=== PATIENT | female | born 1975 | race Hispanic/Latino ===

== ENCOUNTER 2022-01-05 13:51 | Inpatient (IN) | payer MEDICARE ==
--- NOTE | 2022-01-05 14:10 | Event Note ---
Date: 01/05/22 The patient was evaluated in the emergency department for symptoms described in the history of present illness. He/she was evaluated in the context of the global COVID-19 pandemic, which necessitated consideration that the patient might be at risk for infection with the virus that causes COVID-19. Institutional protocols and algorithms that pertain to the evaluation of patients at risk for COVID-19 are in a state of rapid change based on information released by regulatory bodies including the CDC and federal and state organizations. These policies and algorithms were followed during the patient's care in the emergency department. Please note that these policies, procedures and recommendations changed on a rapid basis. EMS documentation not available at time of chart dictation Verbal report received from emergency medical services. Patient is a 46-year-old female who reportedly recently relocated here from [place], who is reportedly blind, with a history of end-stage renal disease on hemodialysis, Saturday, Saturday, Saturday, reportedly last received dialysis on December 25, who presents today with EMS with an EMS articulated complaint of request for hemodialysis. EMS reports unremarkable vital signs in the field. They also report the patient has a vascular access catheter which has subsequently either become dislodged or removed. Patient is blind. She is awake, alert, protecting airway, and in no acute distress. Patient will be placed in room 7. Appropriate laboratory studies and EKG will be obtained. Detailed history and physical to be performed by oncoming provider.
[2022-01-05 14:56] LABS: Hematocrit 31.2 % (30.3-42.9); Hemoglobin 10.1 gm/dl (10.1-14.3); Mean Corpuscular HGB Conc 33 % (30-34); Mean Corpuscular Volume 95 fl (79-97); Platelet Count 237 K/mm3 (140-440); Red Blood Count 3.28 M/mm3 (3.65-5.03); Red Cell Distribution Width 15.7 % (13.2-15.2)
[2022-01-05 15:01] LABS: INR 0.97 (0.87-1.13)
--- NOTE | 2022-01-05 16:25 | Emergency Department Report ---
ED General Adult HPI - General Chief complaint: Recheck/Abnormal Lab/Rx Stated complaint: DIAYLSIS Time Seen by Provider: 01/05/22 15:46 Source: patient, EMS Mode of arrival: Wheelchair Limitations: No Limitations - History of Present Illness Initial comments: 46 yo legally blind F with h/o ESRD currently on dialysis who present today with dislodged dialysis catheter yesterday. Pt reports non functioning fistula on her left arm. Pt says she went to the rest room and dislodged the catheter by accident. No bleeding reported. Pt reports that she has her last dialysis on 12/25/21. No other modifying or associated factors. Severity scale (0 -10): 0 ED Review of Systems ROS: Stated complaint: DIAYLSIS Other details as noted in HPI Comment: All other systems reviewed and negative Musculoskeletal: other (dislodged dialysis catheter on right thigh ) ED Physical Exam - General Limitations: No Limitations General appearance: alert, in no apparent distress - Head Head exam: Present: normal inspection - Eye Eye exam: Present: other (legally blind ) - ENT ENT exam: Present: normal exam, normal orophraynx - Neck Neck exam: Present: normal inspection, full ROM. Absent: tenderness - Respiratory Respiratory exam: Present: normal lung sounds bilaterally, respiratory distress. Absent: accessory muscle use - Cardiovascular Cardiovascular Exam: Present: regular rate, normal rhythm, normal heart sounds - GI/Abdominal GI/Abdominal exam: Present: soft, normal bowel sounds. Absent: distended, tenderness - Extremities Exam Extremities exam: Present: other (scar area on the right anterior thigh ) - Back Exam Back exam: Present: normal inspection. Absent: tenderness - Neurological Exam Neurological exam: Present: alert, oriented X3 - Psychiatric Psychiatric exam: Present: normal affect, normal mood - Skin Skin exam: Present: warm, normal color ED Course Vital Signs 01/05/22 13:55 Temperature 98.2 F Pulse Rate 110 H Respiratory 16 Rate Blood Pressure 110/60 [Left] O2 Sat by Pulse 98 Oximetry - Reevaluation(s) Reevaluation #1: 01/05/22 17:04 here with possible dislodged dialysis catheter -- Was able to find out this patient dialysis balance truer as Dr Hasmukh Burton and her dialysis days - and the last time was 12/25/21-- She goes to [facility] at [address] [place] [address] , [address], [place], [place]-- [phone]. Considering that it has been more than a week since dialysis will go ahead and order labs and consult with hospitalist for possible admission for dialysis. Reevaluation #2: 01/05/22 17:34 lab reviewed and noted with elevated BUn/Cr and K as expected-- at 106/17 and 5.5 mg/dl-- Dr Cisneros the balance truer educational psychology professor suggest admission to the hospitalist and given Kayexalate 60 g PO x 1 for the hyperkalemia-- - Consultations Consultation #1: 01/05/22 17:38 Dr Cisneros Consultation #2: 01/05/22 17:39 Dr Gates who requested that I place admission order ED Medical Decision Making - Lab Data Result diagrams: 01/05/22 14:35 01/05/22 14:35 Critical care attestation.: If time is entered above; I have spent that time in minutes in the direct care of this critically ill patient, excluding procedure time. ED Disposition Clinical Impression: ESRD (end stage renal disease) on dialysis, Dialysis catheter clot or failure, Hyperkalemia Disposition: ADMITTED INPATIENT Is pt being admited?: Yes Does the pt Need Aspirin: No Condition: Serious Referrals: PRIMARY CARE, [Primary Care Provider] - 3-5 Days Time of Disposition: 17:38 (Dr Cisneros consulted)
[2022-01-05] MEDS ORDERED: ACETAMINOPHEN 325 MG TAB PO PRN ×2 (17:39→22:32)
[2022-01-05] MEDS ORDERED: ONDANSETRON 4 MG/2 ML INJ IV PRN ×2 (17:39→22:32)
[2022-01-05] MEDS ORDERED: MORPHINE 2 MG/1 ML INJ IV PRN ×2 (17:39→22:32)
[2022-01-05 18:16] LABS: Albumin 3.7 g/dL (3.9-5); Blood Urea Nitrogen 103 mg/dL (7-17); Hemolysis Index 7
[2022-01-05 18:23] LABS: Alanine Aminotransferase < 5 units/L (7-56); BUN/Creatinine Ratio 7
[2022-01-05 18:27] LABS: Hematocrit 31.6 % (30.3-42.9); Hemoglobin 10.1 gm/dl (10.1-14.3); Mean Corpuscular HGB Conc 32 % (30-34); Mean Corpuscular Volume 96 fl (79-97); Platelet Count 243 K/mm3 (140-440); Red Blood Count 3.29 M/mm3 (3.65-5.03); Red Cell Distribution Width 15.4 % (13.2-15.2)
[2022-01-05 18:37] LABS: INR 0.95 (0.87-1.13)
[2022-01-05 18:38] LABS: Partial Thromboplastin Time 31.2 Sec. (24.2-36.6)
[2022-01-05 19:10] LABS: Total Cells Counted 100
[2022-01-05 19:11] LABS: Ovalocytes Few; Platelet Estimate Consistent w Auto
[2022-01-05 21:27] LABS: Hepatitis B Surface Antigen Non-Reactive (Negative); Hepatitis C Virus Antibody Non-Reactive (NonReactive)
[2022-01-05] MEDS ORDERED: METOCLOPRAMIDE 10 MG/2 ML INJ IV PRN ×2 (22:32→22:41)
[2022-01-05] MEDS ORDERED: HYDROmorphone 0.5 MG/0.5 ML INJ IV PRN (22:32)
[2022-01-05 22:36] LABS: Bilirubin,Urine NEG (Negative); Blood,Urine NEG (Negative); Color,Urine Straw (Yellow); Urobilinogen,Urine < 2.0 mg/dL (<2.0)
[2022-01-06 06:27] LABS: Basophils % (Auto) 0.5 % (0.0-1.8); Eosinophils # (Auto) 0.3 K/mm3 (0.0-0.4); Eosinophils % (Auto) 3.1 % (0.0-4.3); Hematocrit 28.9 % (30.3-42.9); Hemoglobin 9.5 gm/dl (10.1-14.3); Lymphocytes # (Auto) 1.3 K/mm3 (1.2-5.4); Lymphocytes % (Auto) 14.5 % (13.4-35.0); Mean Corpuscular HGB Conc 33 % (30-34); Mean Corpuscular Volume 96 fl (79-97); Monocytes # (Auto) 0.6 K/mm3 (0.0-0.8); Monocytes % (Auto) 6.7 % (0.0-7.3); Platelet Count 208 K/mm3 (140-440); Red Blood Count 3.03 M/mm3 (3.65-5.03); Red Cell Distribution Width 15.4 % (13.2-15.2)
[2022-01-06 06:39] LABS: Albumin 3.2 g/dL (3.9-5); Blood Urea Nitrogen 101 mg/dL (7-17); Hemolysis Index 3
[2022-01-06 06:52] LABS: Alanine Aminotransferase < 5 units/L (7-56); BUN/Creatinine Ratio 7
--- NOTE | 2022-01-06 07:02 | History and Physical Report ---
History of Present Illness Date of examination: 01/05/22 Date of admission: 01/05/22 17:40 Chief complaint: Missed hemodialysis Vascath dislodgment from right groin History of present illness: 46 yo legally blind F with h/o ESRD currently on dialysis who present today with dislodged dialysis catheter yesterday. Pt reports non functioning fistula on her left arm. Pt says she went to the rest room and dislodged the catheter by accident. No bleeding reported. Pt reports that she has her last dialysis on 12/25/21. [facility] [place] [facility] Noncompliant with hemodialysis No dialysis for the last 10 days Shortness of breath and orthopnea present Patient is a very poor historian Past History Past Medical History: ESRD, hypertension Past Surgical History: Other (Vas-Cath and AV fistula) Social history: lives with family, full code Family history: hypertension Medications and Allergies Allergies Allergy/AdvReac Type Severity Reaction Status Date / Time sulfamethoxazole Allergy Hives Verified 01/05/22 19:51 [From Bactrim] trimethoprim [From Bactrim] Allergy Hives Verified 01/05/22 19:51 Active Meds: Active Medications Acetaminophen (Acetaminophen 325 Mg Tab) 650 mg PO Q4H PRN PRN Reason: Pain MILD(1-3)/Fever >100.5/JARAMILLO Famotidine (Famotidine 10 Mg Tab) 10 mg PO BID DONTE Hydromorphone HCl (Hydromorphone 0.5 Mg/0.5 Ml Inj) 0.5 mg IV Q3H PRN PRN Reason: Pain , Severe (7-10) Metoclopramide HCl (Metoclopramide 10 Mg/2 Ml Inj) 2.5 mg IV Q6H PRN PRN Reason: Nausea And Vomiting Morphine Sulfate (Morphine 2 Mg/1 Ml Inj) 2 mg IV Q4H PRN PRN Reason: Pain, Moderate (4-6) Ondansetron HCl (Ondansetron 4 Mg/2 Ml Inj) 4 mg IV Q8H PRN PRN Reason: Nausea And Vomiting Oxycodone/Acetaminophen (Oxycodone /Acetaminophen 5-325mg Tab) 1 tab PO Q6H PRN PRN Reason: Pain, Moderate (4-6) Sodium Chloride (Sodium Chloride 0.9% 10 Ml Flush Syringe) 10 ml IV BID DONTE Sodium Chloride (Sodium Chloride 0.9% 10 Ml Flush Syringe) 10 ml IV PRN PRN PRN Reason: LINE FLUSH Review of Systems All systems: negative Cardiovascular: orthopnea, shortness of breath, dyspnea on exertion Exam - Constitutional Vitals: Temp Pulse Resp BP Pulse Ox 98.2 F 102 H 16 134/67 96 01/06/22 03:47 01/06/22 03:47 01/06/22 03:47 01/06/22 03:47 01/06/22 03:47 General appearance: Present: no acute distress, well-nourished - EENT Eyes: Present: PERRL ENT: hearing intact, clear oral mucosa - Neck Neck: Present: supple, normal ROM - Respiratory Respiratory effort: normal Respiratory: bilateral: CTA - Cardiovascular Heart rate: 78 Rhythm: regular Heart Sounds: Present: S1 & S2. Absent: rub, click - Extremities Extremities: no ischemia, pulses intact, pulses symmetrical, No edema Peripheral Pulses: within normal limits - Abdominal General gastrointestinal: Present: soft, non-tender, non-distended, normal bowel sounds Female genitourinary: Present: normal - Integumentary Integumentary: Present: clear, warm, dry - Musculoskeletal Musculoskeletal: gait normal, strength equal bilaterally - Psychiatric Psychiatric: appropriate mood/affect, intact judgment & insight - Neurologic Neurologic: CNII-XII intact, moves all extremities - Allied Health Allied health notes reviewed: nursing, case management HEART Score - HEART Score History: Moderately suspicious Age: 45-65 Risk factors: 1-2 risk factors Troponin: 1-3x normal limit - Critical Actions Critical Actions: 4-6 pts:12-16.6% risk of adverse cardiac event. Should be admitted Results - Labs CBC & Chem 7: 01/06/22 05:41 01/06/22 05:41 Labs: Laboratory Last Values WBC 8.9 K/mm3 (4.5-11.0) 01/06/22 05:41 RBC 3.03 M/mm3 (3.65-5.03) L 01/06/22 05:41 Hgb 9.5 gm/dl (10.1-14.3) L 01/06/22 05:41 Hct 28.9 % (30.3-42.9) L 01/06/22 05:41 MCV 96 fl (79-97) 01/06/22 05:41 MCH 31 pg (28-32) 01/06/22 05:41 MCHC 33 % (30-34) 01/06/22 05:41 RDW 15.4 % (13.2-15.2) H 01/06/22 05:41 Plt Count 208 K/mm3 (140-440) 01/06/22 05:41 Lymph % (Auto) 14.5 % (13.4-35.0) 01/06/22 05:41 [place] % (Auto) 6.7 % (0.0-7.3) 01/06/22 05:41 Eos % (Auto) 3.1 % (0.0-4.3) 01/06/22 05:41 Baso % (Auto) 0.5 % (0.0-1.8) 01/06/22 05:41 Lymph # (Auto) 1.3 K/mm3 (1.2-5.4) 01/06/22 05:41 [place] # (Auto) 0.6 K/mm3 (0.0-0.8) 01/06/22 05:41 Eos # (Auto) 0.3 K/mm3 (0.0-0.4) 01/06/22 05:41 Baso # (Auto) 0.0 K/mm3 (0.0-0.1) 01/06/22 05:41 Add Manual Diff Complete 01/05/22 17:34 Total Counted 100 01/05/22 17:34 Seg Neutrophils % 75.2 % (40.0-70.0) H 01/06/22 05:41 Seg Neuts % (Manual) 91.0 % (40.0-70.0) H 01/05/22 17:34 Band Neutrophils % 0 % 01/05/22 17:34 Lymphocytes % (Manual) 1.0 % (13.4-35.0) L 01/05/22 17:34 Reactive Lymphs % (Man) 0 % 01/05/22 17:34 Monocytes % (Manual) 6.0 % (0.0-7.3) 01/05/22 17:34 Eosinophils % (Manual) 1.0 % (0.0-4.3) 01/05/22 17:34 Basophils % (Manual) 1.0 % (0.0-1.8) 01/05/22 17:34 Metamyelocytes % 0 % 01/05/22 17:34 Myelocytes % 0 % 01/05/22 17:34 Promyelocytes % 0 % 01/05/22 17:34 Blast Cells % 0 % 01/05/22 17:34 Nucleated RBC % Not Reportable 01/05/22 17:34 Seg Neutrophils # 6.7 K/mm3 (1.8-7.7) 01/06/22 05:41 Seg Neutrophils # Man 10.1 K/mm3 (1.8-7.7) H 01/05/22 17:34 Band Neutrophils # 0.0 K/mm3 01/05/22 17:34 Lymphocytes # (Manual) 0.1 K/mm3 (1.2-5.4) L 01/05/22 17:34 Abs React Lymphs (Man) 0.0 K/mm3 01/05/22 17:34 Monocytes # (Manual) 0.7 K/mm3 (0.0-0.8) 01/05/22 17:34 Eosinophils # (Manual) 0.1 K/mm3 (0.0-0.4) 01/05/22 17:34 Basophils # (Manual) 0.1 K/mm3 (0.0-0.1) 01/05/22 17:34 Metamyelocytes # 0.0 K/mm3 01/05/22 17:34 Myelocytes # 0.0 K/mm3 01/05/22 17:34 Promyelocytes # 0.0 K/mm3 01/05/22 17:34 Blast Cells # 0.0 K/mm3 01/05/22 17:34 WBC Morphology Not Reportable 01/05/22 17:34 Hypersegmented Neuts Not Reportable 01/05/22 17:34 Hyposegmented Neuts Not Reportable 01/05/22 17:34 Hypogranular Neuts Not Reportable 01/05/22 17:34 Smudge Cells Not Reportable 01/05/22 17:34 Toxic Granulation Not Reportable 01/05/22 17:34 Toxic Vacuolation Not Reportable 01/05/22 17:34 Dohle Bodies Not Reportable 01/05/22 17:34 Pelger-Huet Anomaly Not Reportable 01/05/22 17:34 Griselda Rods Not Reportable 01/05/22 17:34 Platelet Estimate Consistent w auto 01/05/22 17:34 Clumped Platelets Not Reportable 01/05/22 17:34 Plt Clumps, EDTA Not Reportable 01/05/22 17:34 Large Platelets Not Reportable 01/05/22 17:34 Giant Platelets Not Reportable 01/05/22 17:34 Platelet Satelliting Not Reportable 01/05/22 17:34 Plt Morphology Comment Not Reportable 01/05/22 17:34 RBC Morphology Not Reportable 01/05/22 17:34 Dimorphic RBCs Not Reportable 01/05/22 17:34 Polychromasia Not Reportable 01/05/22 17:34 Hypochromasia Not Reportable 01/05/22 17:34 Poikilocytosis Not Reportable 01/05/22 17:34 Anisocytosis Not Reportable 01/05/22 17:34 Microcytosis Not Reportable 01/05/22 17:34 Macrocytosis Not Reportable 01/05/22 17:34 Spherocytes Not Reportable 01/05/22 17:34 Pappenheimer Bodies Not Reportable 01/05/22 17:34 Sickle Cells Not Reportable 01/05/22 17:34 Target Cells Not Reportable 01/05/22 17:34 Tear Drop Cells Not Reportable 01/05/22 17:34 Ovalocytes Few 01/05/22 17:34 Helmet Cells Not Reportable 01/05/22 17:34 [place] Bodies Not Reportable 01/05/22 17:34 [place] Rings Not Reportable 01/05/22 17:34 Marleny Cells Not Reportable 01/05/22 17:34 Bite Cells Not Reportable 01/05/22 17:34 Crenated Cell Not Reportable 01/05/22 17:34 Elliptocytes Not Reportable 01/05/22 17:34 Acanthocytes (Spur) Not Reportable 01/05/22 17:34 Rouleaux Not Reportable 01/05/22 17:34 Hemoglobin C Crystals Not Reportable 01/05/22 17:34 Schistocytes Not Reportable 01/05/22 17:34 Malaria parasites Not Reportable 01/05/22 17:34 Niall Bodies Not Reportable 01/05/22 17:34 Hem Pathologist Commnt No 01/05/22 17:34 PT 13.7 Sec. (12.2-14.9) 01/05/22 17:34 INR 0.95 (0.87-1.13) 01/05/22 17:34 APTT 31.2 Sec. (24.2-36.6) 01/05/22 17:34 Sodium 135 mmol/L (137-145) L 01/06/22 05:41 Potassium 5.6 mmol/L (3.6-5.0) H 01/06/22 05:41 Chloride 97.6 mmol/L (98-107) L 01/06/22 05:41 Carbon Dioxide 17 mmol/L (22-30) L 01/06/22 05:41 Anion Gap 26 mmol/L 01/06/22 05:41 BUN 101 mg/dL (7-17) H 01/06/22 05:41 Creatinine 15.5 mg/dL (0.6-1.2) H 01/06/22 05:41 Estimated GFR 3 ml/min 01/06/22 05:41 BUN/Creatinine Ratio 7 % 01/06/22 05:41 Glucose 69 mg/dL (65-100) 01/06/22 05:41 Calcium 8.0 mg/dL (8.4-10.2) L 01/06/22 05:41 Total Bilirubin 0.30 mg/dL (0.1-1.2) 01/06/22 05:41 AST 7 units/L (5-40) 01/06/22 05:41 ALT < 5 units/L (7-56) L 01/06/22 05:41 Alkaline Phosphatase 197 units/L (35-129) H 01/06/22 05:41 Total Protein 6.7 g/dL (6.3-8.2) 01/06/22 05:41 Albumin 3.2 g/dL (3.9-5) L 01/06/22 05:41 Albumin/Globulin Ratio 0.9 % 01/06/22 05:41 HCG, Quant < 2 mIU/mL (0-4) 01/05/22 14:35 Urine Color Straw (Yellow) 01/05/22 21:47 Urine Turbidity Clear (Clear) 01/05/22 21:47 Urine pH 7.0 (5.0-7.0) 01/05/22 21:47 Ur Specific [place] 1.010 (1.003-1.030) 01/05/22 21:47 Urine Protein 100 mg/dl mg/dL (Negative) 01/05/22 21:47 Urine Glucose (UA) 150 mg/dL (Negative) 01/05/22 21:47 Urine Ketones Neg mg/dL (Negative) 01/05/22 21:47 Urine Blood Neg (Negative) 01/05/22 21:47 Urine Nitrite Neg (Negative) 01/05/22 21:47 Urine Bilirubin Neg (Negative) 01/05/22 21:47 Urine Urobilinogen < 2.0 mg/dL (<2.0) 01/05/22 21:47 Ur Leukocyte Esterase Neg (Negative) 01/05/22 21:47 Urine WBC (Auto) 2.0 /HPF (0.0-6.0) 01/05/22 21:47 Urine RBC (Auto) 1.0 /HPF (0.0-6.0) 01/05/22 21:47 U Epithel Cells (Auto) 3.0 /HPF (0-13.0) 01/05/22 21:47 Hepatitis A IgM Ab Non-reactive (NonReactive) 01/05/22 21:00 Hep Bs Antigen Non-reactive (Negative) 01/05/22 21:00 Hep B Core IgM Ab Non-reactive (NonReactive) 01/05/22 21:00 Hepatitis C Antibody Non-reactive (NonReactive) 01/05/22 21:00 - Imaging and Cardiology EKG: report reviewed Chest x-ray: report reviewed [place]/IV: Voiding Method Bedside Commode Assessment and Plan Advance Directives: Yes (Full code) VTE prophylaxis?: Chemical Plan of care discussed with patient/family: Yes - Patient Problems (1) Displacement of vascular dialysis catheter, initial encounter Current Visit: Yes Status: Acute Plan to address problem: Needs placement of a new Vas-Cath (2) ESRD (end stage renal disease) on dialysis Current Visit: Yes Status: Chronic Plan to address problem: Continue hemodialysis as per his regular schedule Nephrology on-call was consulted Dr Jac Cisneros (3) Hyperkalemia Current Visit: Yes Status: Acute Plan to address problem: Treated in the emergency room (4) HTN (hypertension) Current Visit: Yes Status: Chronic Qualifiers: Hypertension type: primary hypertension Qualified Code(s): I10 - Essential (primary) hypertension Plan to address problem: Continue antihypertensives and adjust medications (5) DVT prophylaxis Current Visit: Yes Status: Acute Plan to address problem: Heparin and GI prophylaxis (6) Advance care planning Current Visit: Yes Status: Acute Plan to address problem: Disease education conducted, care plan discussed, diagnosis discussed: Prognosis cussed. Patient is full code. Patient acknowledged understanding and agreement with care plan. +30 minutes.
[2022-01-06] MEDS ORDERED: CALCIUM GLUCONATE 2,000 MG in SODIUM CHLORIDE 0.9% 100 ML IV ONE (07:09)
[2022-01-06] MEDS ORDERED: SODIUM POLYSTYRENE 15 GM/60 ML ORAL LIQD PO ONE ×3 (07:09→21:13)
[2022-01-06] MEDS ORDERED: SODIUM BICARB 8.4% 50 MEQ/50 ML SYRINGE IV ONE (07:10)
[2022-01-06] MEDS ORDERED: SODIUM CHLORIDE 0.9% 100 ML IV PRN (09:51)
--- NOTE | 2022-01-06 09:53 | Consultation ---
History of Present Illness - Reason for Consult Consult date: 01/06/22 end stage renal disease - History of Present Illness RFC: ESRD on HD HPI: 46 yo legally blind F with h/o ESRD currently on dialysis who presents with dislodged dialysis catheter. Pt reports non functioning fistula on her left arm. Pt says she went to the rest room and dislodged the catheter by accident. Pt reports that she has her last dialysis on 12/25/21. Patient recently moved from [place] to [facility] ROS: As in HPI otherwise 12 point review of systems -ve Past History Past Medical History: ESRD, hypertension Past Surgical History: Other (Vas-Cath and AV fistula) Social history: lives with family, full code Family history: hypertension Medications and Allergies Allergies Allergy/AdvReac Type Severity Reaction Status Date / Time sulfamethoxazole Allergy Hives Verified 01/05/22 19:51 [From Bactrim] trimethoprim [From Bactrim] Allergy Hives Verified 01/05/22 19:51 Active Meds: Active Medications Acetaminophen (Acetaminophen 325 Mg Tab) 650 mg PO Q4H PRN PRN Reason: Pain MILD(1-3)/Fever >100.5/JARAMILLO Calcitriol (Calcitriol 0.25 Mcg Cap) 0.25 mcg PO QDAY DONTE Famotidine (Famotidine 10 Mg Tab) 10 mg PO BID DONTE Hydromorphone HCl (Hydromorphone 0.5 Mg/0.5 Ml Inj) 0.5 mg IV Q3H PRN PRN Reason: Pain , Severe (7-10) Sodium Chloride (Nacl 0.9%) 100 mls @ 999 mls/hr IV NJ PRN PRN Reason: Hypotension Metoclopramide HCl (Metoclopramide 10 Mg/2 Ml Inj) 2.5 mg IV Q6H PRN PRN Reason: Nausea And Vomiting Morphine Sulfate (Morphine 2 Mg/1 Ml Inj) 2 mg IV Q4H PRN PRN Reason: Pain, Moderate (4-6) Ondansetron HCl (Ondansetron 4 Mg/2 Ml Inj) 4 mg IV Q8H PRN PRN Reason: Nausea And Vomiting Oxycodone/Acetaminophen (Oxycodone /Acetaminophen 5-325mg Tab) 1 tab PO Q6H PRN PRN Reason: Pain, Moderate (4-6) Sodium Chloride (Sodium Chloride 0.9% 10 Ml Flush Syringe) 10 ml IV BID DONTE Sodium Chloride (Sodium Chloride 0.9% 10 Ml Flush Syringe) 10 ml IV PRN PRN PRN Reason: LINE FLUSH Exam - Vital Signs Vital signs: Vital Signs Temp Pulse Resp BP Pulse Ox 98.2 F 110 H 16 110/60 98 01/05/22 13:55 01/05/22 13:55 01/05/22 13:55 01/05/22 13:55 01/05/22 13:55 - Physical Exam Narrative exam: General appearance: Present: no acute distress, well-nourished - EENT Eyes: Present: PERRL ENT: hearing intact, clear oral mucosa - Neck Neck: Present: supple, normal ROM - Respiratory Respiratory effort: normal Respiratory: bilateral: CTA - Cardiovascular Heart rate: 78 Rhythm: regular Heart Sounds: Present: S1 & S2. Absent: rub, click - Extremities Extremities: no ischemia, pulses intact, pulses symmetrical, No edema Peripheral Pulses: within normal limits - Abdominal General gastrointestinal: Present: soft, non-tender, non-distended, normal bowel sounds Female genitourinary: Present: normal - Integumentary Integumentary: Present: clear, warm, dry - Musculoskeletal Musculoskeletal: gait normal, strength equal bilaterally - Psychiatric Psychiatric: appropriate mood/affect, intact judgment & insight - Neurologic Neurologic: CNII-XII intact, moves all extremities - Allied Health Allied health notes reviewed: nursing, case management Results - Lab Results 01/06/22 05:41 01/06/22 05:41 Most recent lab results Calcium 8.0 mg/dL (8.4-10.2) L 01/06/22 05:41 Assessment and Plan (1) Displacement of vascular dialysis catheter, initial encounter (2) ESRD (end stage renal disease) on dialysis (3) Hyperkalemia (4) HTN (hypertension) -Vascular consulted to fix dialysis access, HD afterwards -Kayxelate ordered for high K, Low K diet -Moved to [place] from [place] recently, consult CM to place at [place] HD unit -Pt consents to and is agreeable to dialysis
[2022-01-06] MEDS: FAMOTIDINE 10 MG TAB PO SCH ×2 (10:58→21:36)
[2022-01-06] MEDS: CALCITRIOL 0.25 MCG CAP PO SCH (10:59)
[2022-01-06] MEDS ORDERED: DEXTROSE 50% IN WATER (25GM) 50 ML SYRINGE IV ONE (11:00)
[2022-01-06] MEDS ORDERED: INSULIN REGULAR, HUMAN 100 UNITS/1 ML IV ONE (11:00)
[2022-01-06] MEDS: DEXTROSE 50% IN WATER (25GM) 50 ML SYRINGE IV ONE ×2 (11:01→11:05)
[2022-01-06] MEDS: INSULIN REGULAR, HUMAN 100 UNITS/1 ML IV ONE ×2 (11:02→11:05)
--- NOTE | 2022-01-06 15:54 | Consultation ---
History of Present Illness - Reason for Consult Consult date: 01/06/22 Permacath Insertion Requesting physician: HELENA BELLAMY - History of Present Illness The patient is a 46-year-old female with history of end-stage renal disease who has had dialysis access in bilateral upper extremities as well as previous permacath in bilateral internal jugular veins. Her most recent dialysis access was a right femoral permacath as she states that only been in for a period of t woo. She states that she was getting up to go to the bathroom and the catheter was inadvertently dislodged from its position. The patient has not undergone dialysis 12/25/2021. She denies any chest pain or shortness of breath. She has no additional complaints at this time. Past History Past Medical History: ESRD, hypertension, other (Blindness) Past Surgical History: Other (Dialysis access in bilateral upper extremities, multiple permacaths) Social history: lives with family, full code Family history: hypertension Medications and Allergies Allergies Allergy/AdvReac Type Severity Reaction Status Date / Time sulfamethoxazole Allergy Hives Verified 01/05/22 19:51 [From Bactrim] trimethoprim [From Bactrim] Allergy Hives Verified 01/05/22 19:51 Active Meds: Active Medications Acetaminophen (Acetaminophen 325 Mg Tab) 650 mg PO Q4H PRN PRN Reason: Pain MILD(1-3)/Fever >100.5/JARAMILLO Calcitriol (Calcitriol 0.25 Mcg Cap) 0.25 mcg PO QDAY [facility] Last Admin: 01/06/22 10:59 Dose: 0.25 mcg Famotidine (Famotidine 10 Mg Tab) 10 mg PO BID [facility] Last Admin: 01/06/22 10:58 Dose: Not Given Hydromorphone HCl (Hydromorphone 0.5 Mg/0.5 Ml Inj) 0.5 mg IV Q3H PRN PRN Reason: Pain , Severe (7-10) Sodium Chloride (Nacl 0.9%) 100 mls @ 999 mls/hr IV [place] PRN PRN Reason: Hypotension Metoclopramide HCl (Metoclopramide 10 Mg/2 Ml Inj) 2.5 mg IV Q6H PRN PRN Reason: Nausea And Vomiting Morphine Sulfate (Morphine 2 Mg/1 Ml Inj) 2 mg IV Q4H PRN PRN Reason: Pain, Moderate (4-6) Ondansetron HCl (Ondansetron 4 Mg/2 Ml Inj) 4 mg IV Q8H PRN PRN Reason: Nausea And Vomiting Oxycodone/Acetaminophen (Oxycodone /Acetaminophen 5-325mg Tab) 1 tab PO Q6H PRN PRN Reason: Pain, Moderate (4-6) Sodium Chloride (Sodium Chloride 0.9% 10 Ml Flush Syringe) 10 ml IV BID DONTE Last Admin: 01/06/22 11:02 Dose: 10 ml Sodium Chloride (Sodium Chloride 0.9% 10 Ml Flush Syringe) 10 ml IV PRN PRN PRN Reason: LINE FLUSH Review of Systems All systems: negative Exam - Constitutional Vitals: Temp Pulse Resp BP Pulse Ox 98.6 F 105 H 20 146/80 97 01/06/22 11:51 01/06/22 11:51 01/06/22 07:58 01/06/22 11:51 01/06/22 11:51 General appearance: Present: no acute distress - Respiratory Respiratory effort: normal - Cardiovascular Rhythm: regular - Extremities Extremities: abnormal (multiple thrombosed AV Access sites) Extremity abnormal: other (permacath exit site right thigh without signs of infection or bleeding) - Abdominal General gastrointestinal: Present: non-tender Female genitourinary: Present: deferred - Rectal Rectal Exam: deferred Results - Labs CBC & Chem 7: 01/06/22 05:41 01/06/22 05:41 Labs: Abnormal lab results 01/05/22 01/05/22 01/06/22 Range/Units 17:34 17:34 05:41 WBC 11.1 H (4.5-11.0) K/mm3 RBC 3.29 L 3.03 L (3.65-5.03) M/mm3 Hgb 9.5 L (10.1-14.3) gm/dl Hct 28.9 L (30.3-42.9) % RDW 15.4 H 15.4 H (13.2-15.2) % Seg Neutrophils % 75.2 H (40.0-70.0) % Seg Neuts % (Manual) 91.0 H (40.0-70.0) % Lymphocytes % (Manual) 1.0 L (13.4-35.0) % Seg Neutrophils # Man 10.1 H (1.8-7.7) K/mm3 Lymphocytes # (Manual) 0.1 L (1.2-5.4) K/mm3 Sodium (137-145) mmol/L Potassium 5.8 H (3.6-5.0) mmol/L Chloride (98-107) mmol/L Carbon Dioxide 15 L (22-30) mmol/L BUN 103 H (7-17) mg/dL Creatinine 15.5 H (0.6-1.2) mg/dL Calcium 8.0 L (8.4-10.2) mg/dL ALT < 5 L (7-56) units/L Alkaline Phosphatase 223 H (35-129) units/L Albumin 3.7 L (3.9-5) g/dL 01/06/22 Range/Units 05:41 WBC (4.5-11.0) K/mm3 RBC (3.65-5.03) M/mm3 Hgb (10.1-14.3) gm/dl Hct (30.3-42.9) % RDW (13.2-15.2) % Seg Neutrophils % (40.0-70.0) % Seg Neuts % (Manual) (40.0-70.0) % Lymphocytes % (Manual) (13.4-35.0) % Seg Neutrophils # Man (1.8-7.7) K/mm3 Lymphocytes # (Manual) (1.2-5.4) K/mm3 Sodium 135 L (137-145) mmol/L Potassium 5.6 H (3.6-5.0) mmol/L Chloride 97.6 L (98-107) mmol/L Carbon Dioxide 17 L (22-30) mmol/L BUN 101 H (7-17) mg/dL Creatinine 15.5 H (0.6-1.2) mg/dL Calcium 8.0 L (8.4-10.2) mg/dL ALT < 5 L (7-56) units/L Alkaline Phosphatase 197 H (35-129) units/L Albumin 3.2 L (3.9-5) g/dL Assessment and Plan The patient is a 46-year-old female with a history of end-stage renal disease who has missed approximately 2 weeks of dialysis secondary to a dislodged permacath. She is not in need of urgent dialysis at this time. Will plan for permacath placement on Saturday. Discussed the plan with the patient who expressed understanding and agrees.
--- NOTE | 2022-01-06 16:17 | Progress Note ---
Assessment and Plan Assessment and plan: #Displacement of vascular dialysis catheter #ESRD on hemodialysis -Access: No longer present; originally in right femoral -Outpatient schedule: N/A -HD center: Unknown -Nephrology consulted; appreciate recs. -Vascular surgery consulted; pending recs -Renally dose medications and avoid nephrotoxic drugs. Renal diet. #Hyperkalemia Potassium 5.6 Ordered calcium gluconate, D50, regular insulin 5 units IV for medical management of hyperkalemia Patient refusing treatment. Continue to monitor with daily BMP. Should improve once patient undergoes hemodialysis. #Hypertension - home medications: Unknown - current medications: Currently holding as the patient is normotensive - SBP goal <160 and DBP goal <90 while inpatient - continue to monitor #Hypocalcemia Calcium 8.0 Starting calcitriol 0.25 mg daily #Mild protein caloric malnutrition Albumin 3.2 Starting dietary supplementation Critical Care Billing: The high probability of a clinically significant, sudden or life threatening deterioration of the [renal] system(s) required my full and direct attention, intervention and personal management. The aggregate critical care time was [60] minutes. This time is in addition to time spent performing reported procedures but includes the following: [x] Data Review and interpretation [x] Patient assessment and monitoring of vital signs [x] Documentation [x] Medication orders and management Disposition Plan: Continue medical management Total Time Spent with Patient (Minutes): 45 min History Interval history: No acute events overnight. Hospitalist Physical - Constitutional Vitals: Temp Pulse Resp BP Pulse Ox 98.6 F 105 H 20 146/80 97 01/06/22 11:51 01/06/22 11:51 01/06/22 07:58 01/06/22 11:51 01/06/22 11:51 General appearance: Present: no acute distress, well-nourished, other (Legally blind) - EENT ENT: hearing intact, clear oral mucosa - Neck Neck: Present: supple, normal ROM - Respiratory Respiratory effort: normal Respiratory: bilateral: CTA - Cardiovascular Rhythm: regular Heart Sounds: Present: S1 & S2 - Extremities Extremities: no ischemia, pulses intact, pulses symmetrical, No edema, normal temperature, normal color Peripheral Pulses: within normal limits - Abdominal General gastrointestinal: soft, non-tender, non-distended, normal bowel sounds - Integumentary Integumentary: Present: clear, warm, dry - Psychiatric Psychiatric: appropriate mood/affect, intact judgment & insight, memory intact, cooperative - Neurologic Neurologic: CNII-XII intact, moves all extremities - Allied Health Allied health notes reviewed: nursing HEART Score - HEART Score Age: 45-65 Risk factors: 1-2 risk factors Troponin: 1-3x normal limit - Critical Actions Critical Actions: 4-6 pts:12-16.6% risk of adverse cardiac event. Should be admitted Results - Labs CBC & Chem 7: 01/06/22 05:41 01/06/22 05:41 Labs: Laboratory Last Values WBC 8.9 K/mm3 (4.5-11.0) 01/06/22 05:41 RBC 3.03 M/mm3 (3.65-5.03) L 01/06/22 05:41 Hgb 9.5 gm/dl (10.1-14.3) L 01/06/22 05:41 Hct 28.9 % (30.3-42.9) L 01/06/22 05:41 MCV 96 fl (79-97) 01/06/22 05:41 MCH 31 pg (28-32) 01/06/22 05:41 MCHC 33 % (30-34) 01/06/22 05:41 RDW 15.4 % (13.2-15.2) H 01/06/22 05:41 Plt Count 208 K/mm3 (140-440) 01/06/22 05:41 Lymph % (Auto) 14.5 % (13.4-35.0) 01/06/22 05:41 [place] % (Auto) 6.7 % (0.0-7.3) 01/06/22 05:41 Eos % (Auto) 3.1 % (0.0-4.3) 01/06/22 05:41 Baso % (Auto) 0.5 % (0.0-1.8) 01/06/22 05:41 Lymph # (Auto) 1.3 K/mm3 (1.2-5.4) 01/06/22 05:41 [place] # (Auto) 0.6 K/mm3 (0.0-0.8) 01/06/22 05:41 Eos # (Auto) 0.3 K/mm3 (0.0-0.4) 01/06/22 05:41 Baso # (Auto) 0.0 K/mm3 (0.0-0.1) 01/06/22 05:41 Add Manual Diff Complete 01/05/22 17:34 Total Counted 100 01/05/22 17:34 Seg Neutrophils % 75.2 % (40.0-70.0) H 01/06/22 05:41 Seg Neuts % (Manual) 91.0 % (40.0-70.0) H 01/05/22 17:34 Band Neutrophils % 0 % 01/05/22 17:34 Lymphocytes % (Manual) 1.0 % (13.4-35.0) L 01/05/22 17:34 Reactive Lymphs % (Man) 0 % 01/05/22 17:34 Monocytes % (Manual) 6.0 % (0.0-7.3) 01/05/22 17:34 Eosinophils % (Manual) 1.0 % (0.0-4.3) 01/05/22 17:34 Basophils % (Manual) 1.0 % (0.0-1.8) 01/05/22 17:34 Metamyelocytes % 0 % 01/05/22 17:34 Myelocytes % 0 % 01/05/22 17:34 Promyelocytes % 0 % 01/05/22 17:34 Blast Cells % 0 % 01/05/22 17:34 Nucleated RBC % Not Reportable 01/05/22 17:34 Seg Neutrophils # 6.7 K/mm3 (1.8-7.7) 01/06/22 05:41 Seg Neutrophils # Man 10.1 K/mm3 (1.8-7.7) H 01/05/22 17:34 Band Neutrophils # 0.0 K/mm3 01/05/22 17:34 Lymphocytes # (Manual) 0.1 K/mm3 (1.2-5.4) L 01/05/22 17:34 Abs React Lymphs (Man) 0.0 K/mm3 01/05/22 17:34 Monocytes # (Manual) 0.7 K/mm3 (0.0-0.8) 01/05/22 17:34 Eosinophils # (Manual) 0.1 K/mm3 (0.0-0.4) 01/05/22 17:34 Basophils # (Manual) 0.1 K/mm3 (0.0-0.1) 01/05/22 17:34 Metamyelocytes # 0.0 K/mm3 01/05/22 17:34 Myelocytes # 0.0 K/mm3 01/05/22 17:34 Promyelocytes # 0.0 K/mm3 01/05/22 17:34 Blast Cells # 0.0 K/mm3 01/05/22 17:34 WBC Morphology Not Reportable 01/05/22 17:34 Hypersegmented Neuts Not Reportable 01/05/22 17:34 Hyposegmented Neuts Not Reportable 01/05/22 17:34 Hypogranular Neuts Not Reportable 01/05/22 17:34 Smudge Cells Not Reportable 01/05/22 17:34 Toxic Granulation Not Reportable 01/05/22 17:34 Toxic Vacuolation Not Reportable 01/05/22 17:34 Dohle Bodies Not Reportable 01/05/22 17:34 Pelger-Huet Anomaly Not Reportable 01/05/22 17:34 Griselda Rods Not Reportable 01/05/22 17:34 Platelet Estimate Consistent w auto 01/05/22 17:34 Clumped Platelets Not Reportable 01/05/22 17:34 Plt Clumps, EDTA Not Reportable 01/05/22 17:34 Large Platelets Not Reportable 01/05/22 17:34 Giant Platelets Not Reportable 01/05/22 17:34 Platelet Satelliting Not Reportable 01/05/22 17:34 Plt Morphology Comment Not Reportable 01/05/22 17:34 RBC Morphology Not Reportable 01/05/22 17:34 Dimorphic RBCs Not Reportable 01/05/22 17:34 Polychromasia Not Reportable 01/05/22 17:34 Hypochromasia Not Reportable 01/05/22 17:34 Poikilocytosis Not Reportable 01/05/22 17:34 Anisocytosis Not Reportable 01/05/22 17:34 Microcytosis Not Reportable 01/05/22 17:34 Macrocytosis Not Reportable 01/05/22 17:34 Spherocytes Not Reportable 01/05/22 17:34 Pappenheimer Bodies Not Reportable 01/05/22 17:34 Sickle Cells Not Reportable 01/05/22 17:34 Target Cells Not Reportable 01/05/22 17:34 Tear Drop Cells Not Reportable 01/05/22 17:34 Ovalocytes Few 01/05/22 17:34 Helmet Cells Not Reportable 01/05/22 17:34 Hawkins-Zuehl Bodies Not Reportable 01/05/22 17:34 Center Rings Not Reportable 01/05/22 17:34 Marleny Cells Not Reportable 01/05/22 17:34 Bite Cells Not Reportable 01/05/22 17:34 Crenated Cell Not Reportable 01/05/22 17:34 Elliptocytes Not Reportable 01/05/22 17:34 Acanthocytes (Spur) Not Reportable 01/05/22 17:34 Rouleaux Not Reportable 01/05/22 17:34 Hemoglobin C Crystals Not Reportable 01/05/22 17:34 Schistocytes Not Reportable 01/05/22 17:34 Malaria parasites Not Reportable 01/05/22 17:34 Niall Bodies Not Reportable 01/05/22 17:34 Hem Pathologist Commnt No 01/05/22 17:34 PT 13.7 Sec. (12.2-14.9) 01/05/22 17:34 INR 0.95 (0.87-1.13) 01/05/22 17:34 APTT 31.2 Sec. (24.2-36.6) 01/05/22 17:34 Sodium 135 mmol/L (137-145) L 01/06/22 05:41 Potassium 5.6 mmol/L (3.6-5.0) H 01/06/22 05:41 Chloride 97.6 mmol/L (98-107) L 01/06/22 05:41 Carbon Dioxide 17 mmol/L (22-30) L 01/06/22 05:41 Anion Gap 26 mmol/L 01/06/22 05:41 BUN 101 mg/dL (7-17) H 01/06/22 05:41 Creatinine 15.5 mg/dL (0.6-1.2) H 01/06/22 05:41 Estimated GFR 3 ml/min 01/06/22 05:41 BUN/Creatinine Ratio 7 % 01/06/22 05:41 Glucose 69 mg/dL (65-100) 01/06/22 05:41 Calcium 8.0 mg/dL (8.4-10.2) L 01/06/22 05:41 Total Bilirubin 0.30 mg/dL (0.1-1.2) 01/06/22 05:41 AST 7 units/L (5-40) 01/06/22 05:41 ALT < 5 units/L (7-56) L 01/06/22 05:41 Alkaline Phosphatase 197 units/L (35-129) H 01/06/22 05:41 Total Protein 6.7 g/dL (6.3-8.2) 01/06/22 05:41 Albumin 3.2 g/dL (3.9-5) L 01/06/22 05:41 Albumin/Globulin Ratio 0.9 % 01/06/22 05:41 HCG, Quant < 2 mIU/mL (0-4) 01/05/22 14:35 Urine Color Straw (Yellow) 01/05/22 21:47 Urine Turbidity Clear (Clear) 01/05/22 21:47 Urine pH 7.0 (5.0-7.0) 01/05/22 21:47 Ur Specific [place] 1.010 (1.003-1.030) 01/05/22 21:47 Urine Protein 100 mg/dl mg/dL (Negative) 01/05/22 21:47 Urine Glucose (UA) 150 mg/dL (Negative) 01/05/22 21:47 Urine Ketones Neg mg/dL (Negative) 01/05/22 21:47 Urine Blood Neg (Negative) 01/05/22 21:47 Urine Nitrite Neg (Negative) 01/05/22 21:47 Urine Bilirubin Neg (Negative) 01/05/22 21:47 Urine Urobilinogen < 2.0 mg/dL (<2.0) 01/05/22 21:47 Ur Leukocyte Esterase Neg (Negative) 01/05/22 21:47 Urine WBC (Auto) 2.0 /HPF (0.0-6.0) 01/05/22 21:47 Urine RBC (Auto) 1.0 /HPF (0.0-6.0) 01/05/22 21:47 U Epithel Cells (Auto) 3.0 /HPF (0-13.0) 01/05/22 21:47 Hepatitis A IgM Ab Non-reactive (NonReactive) 01/05/22 21:00 Hep Bs Antigen Non-reactive (Negative) 01/05/22 21:00 Hep B Core IgM Ab Non-reactive (NonReactive) 01/05/22 21:00 Hepatitis C Antibody Non-reactive (NonReactive) 01/05/22 21:00 [place]/IV: Voiding Method Bedside Commode Active Medications - Current Medications Current Medications: Generic Name Dose Route Start Last Admin Trade Name Freq PRN Reason Stop Dose Admin Acetaminophen 650 mg 01/05/22 22:32 Acetaminophen 325 Mg Tab PO Q4H PRN Pain MILD(1-3)/Fever >100.5/JARAMILLO Calcitriol 0.25 mcg 01/06/22 10:00 01/06/22 10:59 Calcitriol 0.25 Mcg Cap PO 0.25 mcg QDAY DONTE Administration Famotidine 10 mg 01/06/22 10:00 01/06/22 10:58 Famotidine 10 Mg Tab PO Not Given BID DONTE Hydromorphone HCl 0.5 mg 01/05/22 22:32 Hydromorphone 0.5 Mg/0.5 Ml Inj IV Q3H PRN Pain , Severe (7-10) Sodium Chloride 100 mls @ 999 mls/hr 01/06/22 09:51 Nacl 0.9% IV [place] PRN Hypotension Metoclopramide HCl 2.5 mg 01/05/22 22:41 Metoclopramide 10 Mg/2 Ml Inj IV Q6H PRN Nausea And Vomiting Morphine Sulfate 2 mg 01/05/22 22:32 Morphine 2 Mg/1 Ml Inj IV Q4H PRN Pain, Moderate (4-6) Ondansetron HCl 4 mg 01/05/22 22:32 Ondansetron 4 Mg/2 Ml Inj IV Q8H PRN Nausea And Vomiting Oxycodone/Acetaminophen 1 tab 01/05/22 22:32 Oxycodone /Acetaminophen 5-325mg Tab PO Q6H PRN Pain, Moderate (4-6) Sodium Chloride 10 ml 01/06/22 10:00 01/06/22 11:02 Sodium Chloride 0.9% 10 Ml Flush Syringe IV 10 ml BID DONTE Administration Sodium Chloride 10 ml 01/05/22 22:32 Sodium Chloride 0.9% 10 Ml Flush Syringe IV PRN PRN LINE FLUSH
[2022-01-06 20:37] LABS: Calcium 8.2 mg/dL (8.4-10.2)
[2022-01-07 06:35] LABS: Calcium 8.7 mg/dL (8.4-10.2)
--- NOTE | 2022-01-07 09:49 | Progress Note ---
Assessment and Plan - Patient Problems (1) Displacement of vascular dialysis catheter, initial encounter Current Visit: Yes Status: Acute Plan to address problem: Vascular surgery team consulted. Patient pending surgical intervention in a.m. no reported nursing events. Patient resting calmly. (2) ESRD (end stage renal disease) on dialysis Current Visit: Yes Status: Chronic Plan to address problem: Dialysis as per renal team. Patient pending permacath placement in a.m. (3) HTN (hypertension) Current Visit: Yes Status: Chronic Qualifiers: Hypertension type: primary hypertension Qualified Code(s): I10 - Essential (primary) hypertension Plan to address problem: Monitor blood pressure every shift, continue medical management. (4) DVT prophylaxis Current Visit: Yes Status: Acute Plan to address problem: SCD to bilateral lower extremities while in bed (5) Advance care planning Current Visit: Yes Status: Acute Plan to address problem: Disease education conducted, care plan discussed, diagnoses discussed, prognosis discussed, patient is full code. +30 minutes. History Interval history: 46 YO Female HD#2 with end-stage renal disease, hyperkalemia, dislodgment of dialysis catheter. Patient pending permacath placement in a.m. patient request pain medications at time of evaluation. No specific complaints. No reported nursing events. Hospitalist Physical - Constitutional Vitals: Temp Pulse Resp BP Pulse Ox 100.6 F H 133 H 16 147/73 97 01/07/22 07:38 01/07/22 07:38 01/07/22 03:43 01/07/22 07:38 01/07/22 07:38 General appearance: Present: no acute distress, well-nourished, other (Legally blind) - EENT Eyes: Present: PERRL ENT: hearing intact - Neck Neck: Present: supple - Respiratory Respiratory: bilateral: CTA - Cardiovascular Rhythm: regular Heart Sounds: Present: S1 & S2 - Extremities Extremities: no ischemia Peripheral Pulses: within normal limits - Abdominal General gastrointestinal: soft, non-tender, non-distended - Integumentary Integumentary: Present: clear, dry - Psychiatric Psychiatric: cooperative - Neurologic Neurologic: CNII-XII intact HEART Score - HEART Score Age: 45-65 Risk factors: 1-2 risk factors Troponin: 1-3x normal limit - Critical Actions Critical Actions: 4-6 pts:12-16.6% risk of adverse cardiac event. Should be admitted Results - Labs CBC & Chem 7: 01/06/22 05:41 01/07/22 05:57 Labs: Laboratory Last Values WBC 8.9 K/mm3 (4.5-11.0) 01/06/22 05:41 RBC 3.03 M/mm3 (3.65-5.03) L 01/06/22 05:41 Hgb 9.5 gm/dl (10.1-14.3) L 01/06/22 05:41 Hct 28.9 % (30.3-42.9) L 01/06/22 05:41 MCV 96 fl (79-97) 01/06/22 05:41 MCH 31 pg (28-32) 01/06/22 05:41 MCHC 33 % (30-34) 01/06/22 05:41 RDW 15.4 % (13.2-15.2) H 01/06/22 05:41 Plt Count 208 K/mm3 (140-440) 01/06/22 05:41 Lymph % (Auto) 14.5 % (13.4-35.0) 01/06/22 05:41 [place] % (Auto) 6.7 % (0.0-7.3) 01/06/22 05:41 Eos % (Auto) 3.1 % (0.0-4.3) 01/06/22 05:41 Baso % (Auto) 0.5 % (0.0-1.8) 01/06/22 05:41 Lymph # (Auto) 1.3 K/mm3 (1.2-5.4) 01/06/22 05:41 [place] # (Auto) 0.6 K/mm3 (0.0-0.8) 01/06/22 05:41 Eos # (Auto) 0.3 K/mm3 (0.0-0.4) 01/06/22 05:41 Baso # (Auto) 0.0 K/mm3 (0.0-0.1) 01/06/22 05:41 Add Manual Diff Complete 01/05/22 17:34 Total Counted 100 01/05/22 17:34 Seg Neutrophils % 75.2 % (40.0-70.0) H 01/06/22 05:41 Seg Neuts % (Manual) 91.0 % (40.0-70.0) H 01/05/22 17:34 Band Neutrophils % 0 % 01/05/22 17:34 Lymphocytes % (Manual) 1.0 % (13.4-35.0) L 01/05/22 17:34 Reactive Lymphs % (Man) 0 % 01/05/22 17:34 Monocytes % (Manual) 6.0 % (0.0-7.3) 01/05/22 17:34 Eosinophils % (Manual) 1.0 % (0.0-4.3) 01/05/22 17:34 Basophils % (Manual) 1.0 % (0.0-1.8) 01/05/22 17:34 Metamyelocytes % 0 % 01/05/22 17:34 Myelocytes % 0 % 01/05/22 17:34 Promyelocytes % 0 % 01/05/22 17:34 Blast Cells % 0 % 01/05/22 17:34 Nucleated RBC % Not Reportable 01/05/22 17:34 Seg Neutrophils # 6.7 K/mm3 (1.8-7.7) 01/06/22 05:41 Seg Neutrophils # Man 10.1 K/mm3 (1.8-7.7) H 01/05/22 17:34 Band Neutrophils # 0.0 K/mm3 01/05/22 17:34 Lymphocytes # (Manual) 0.1 K/mm3 (1.2-5.4) L 01/05/22 17:34 Abs React Lymphs (Man) 0.0 K/mm3 01/05/22 17:34 Monocytes # (Manual) 0.7 K/mm3 (0.0-0.8) 01/05/22 17:34 Eosinophils # (Manual) 0.1 K/mm3 (0.0-0.4) 01/05/22 17:34 Basophils # (Manual) 0.1 K/mm3 (0.0-0.1) 01/05/22 17:34 Metamyelocytes # 0.0 K/mm3 01/05/22 17:34 Myelocytes # 0.0 K/mm3 01/05/22 17:34 Promyelocytes # 0.0 K/mm3 01/05/22 17:34 Blast Cells # 0.0 K/mm3 01/05/22 17:34 WBC Morphology Not Reportable 01/05/22 17:34 Hypersegmented Neuts Not Reportable 01/05/22 17:34 Hyposegmented Neuts Not Reportable 01/05/22 17:34 Hypogranular Neuts Not Reportable 01/05/22 17:34 Smudge Cells Not Reportable 01/05/22 17:34 Toxic Granulation Not Reportable 01/05/22 17:34 Toxic Vacuolation Not Reportable 01/05/22 17:34 Dohle Bodies Not Reportable 01/05/22 17:34 Pelger-Huet Anomaly Not Reportable 01/05/22 17:34 Griselda Rods Not Reportable 01/05/22 17:34 Platelet Estimate Consistent w auto 01/05/22 17:34 Clumped Platelets Not Reportable 01/05/22 17:34 Plt Clumps, EDTA Not Reportable 01/05/22 17:34 Large Platelets Not Reportable 01/05/22 17:34 Giant Platelets Not Reportable 01/05/22 17:34 Platelet Satelliting Not Reportable 01/05/22 17:34 Plt Morphology Comment Not Reportable 01/05/22 17:34 RBC Morphology Not Reportable 01/05/22 17:34 Dimorphic RBCs Not Reportable 01/05/22 17:34 Polychromasia Not Reportable 01/05/22 17:34 Hypochromasia Not Reportable 01/05/22 17:34 Poikilocytosis Not Reportable 01/05/22 17:34 Anisocytosis Not Reportable 01/05/22 17:34 Microcytosis Not Reportable 01/05/22 17:34 Macrocytosis Not Reportable 01/05/22 17:34 Spherocytes Not Reportable 01/05/22 17:34 Pappenheimer Bodies Not Reportable 01/05/22 17:34 Sickle Cells Not Reportable 01/05/22 17:34 Target Cells Not Reportable 01/05/22 17:34 Tear Drop Cells Not Reportable 01/05/22 17:34 Ovalocytes Few 01/05/22 17:34 Helmet Cells Not Reportable 01/05/22 17:34 [place] Bodies Not Reportable 01/05/22 17:34 [place] Rings Not Reportable 01/05/22 17:34 Marleny Cells Not Reportable 01/05/22 17:34 Bite Cells Not Reportable 01/05/22 17:34 Crenated Cell Not Reportable 01/05/22 17:34 Elliptocytes Not Reportable 01/05/22 17:34 Acanthocytes (Spur) Not Reportable 01/05/22 17:34 Rouleaux Not Reportable 01/05/22 17:34 Hemoglobin C Crystals Not Reportable 01/05/22 17:34 Schistocytes Not Reportable 01/05/22 17:34 Malaria parasites Not Reportable 01/05/22 17:34 Niall Bodies Not Reportable 01/05/22 17:34 Hem Pathologist Commnt No 01/05/22 17:34 PT 13.7 Sec. (12.2-14.9) 01/05/22 17:34 INR 0.95 (0.87-1.13) 01/05/22 17:34 APTT 31.2 Sec. (24.2-36.6) 01/05/22 17:34 Sodium 138 mmol/L (137-145) 01/07/22 05:57 Potassium 3.9 mmol/L (3.6-5.0) D 01/07/22 05:57 Chloride 98.0 mmol/L (98-107) 01/07/22 05:57 Carbon Dioxide 15 mmol/L (22-30) L 01/07/22 05:57 Anion Gap 29 mmol/L 01/07/22 05:57 BUN 98 mg/dL (7-17) H 01/07/22 05:57 Creatinine 15.3 mg/dL (0.6-1.2) H 01/07/22 05:57 Estimated GFR 3 ml/min 01/07/22 05:57 BUN/Creatinine Ratio 6 % 01/07/22 05:57 Glucose 73 mg/dL (65-100) 01/07/22 05:57 Calcium 8.7 mg/dL (8.4-10.2) 01/07/22 05:57 Total Bilirubin 0.30 mg/dL (0.1-1.2) 01/06/22 05:41 AST 7 units/L (5-40) 01/06/22 05:41 ALT < 5 units/L (7-56) L 01/06/22 05:41 Alkaline Phosphatase 197 units/L (35-129) H 01/06/22 05:41 Total Protein 6.7 g/dL (6.3-8.2) 01/06/22 05:41 Albumin 3.2 g/dL (3.9-5) L 01/06/22 05:41 Albumin/Globulin Ratio 0.9 % 01/06/22 05:41 HCG, Quant < 2 mIU/mL (0-4) 01/05/22 14:35 Urine Color Straw (Yellow) 01/05/22 21:47 Urine Turbidity Clear (Clear) 01/05/22 21:47 Urine pH 7.0 (5.0-7.0) 01/05/22 21:47 Ur Specific [place] 1.010 (1.003-1.030) 01/05/22 21:47 Urine Protein 100 mg/dl mg/dL (Negative) 01/05/22 21:47 Urine Glucose (UA) 150 mg/dL (Negative) 01/05/22 21:47 Urine Ketones Neg mg/dL (Negative) 01/05/22 21:47 Urine Blood Neg (Negative) 01/05/22 21:47 Urine Nitrite Neg (Negative) 01/05/22 21:47 Urine Bilirubin Neg (Negative) 01/05/22 21:47 Urine Urobilinogen < 2.0 mg/dL (<2.0) 01/05/22 21:47 Ur Leukocyte Esterase Neg (Negative) 01/05/22 21:47 Urine WBC (Auto) 2.0 /HPF (0.0-6.0) 01/05/22 21:47 Urine RBC (Auto) 1.0 /HPF (0.0-6.0) 01/05/22 21:47 U Epithel Cells (Auto) 3.0 /HPF (0-13.0) 01/05/22 21:47 Hepatitis A IgM Ab Non-reactive (NonReactive) 01/05/22 21:00 Hep Bs Antigen Non-reactive (Negative) 01/05/22 21:00 Hep B Core IgM Ab Non-reactive (NonReactive) 01/05/22 21:00 Hepatitis C Antibody Non-reactive (NonReactive) 01/05/22 21:00 [place]/IV: Voiding Method Bedside Commode Active Medications - Current Medications Current Medications: Generic Name Dose Route Start Last Admin Trade Name Freq PRN Reason Stop Dose Admin Acetaminophen 650 mg 01/05/22 22:32 Acetaminophen 325 Mg Tab PO Q4H PRN Pain MILD(1-3)/Fever >100.5/JARAMILLO Calcitriol 0.25 mcg 01/06/22 10:00 01/06/22 10:59 Calcitriol 0.25 Mcg Cap PO 0.25 mcg QDAY DONTE Administration Famotidine 10 mg 01/06/22 10:00 01/06/22 21:36 Famotidine 10 Mg Tab PO 10 mg BID DONTE Administration Hydromorphone HCl 0.5 mg 01/05/22 22:32 Hydromorphone 0.5 Mg/0.5 Ml Inj IV Q3H PRN Pain , Severe (7-10) Sodium Chloride 100 mls @ 999 mls/hr 01/06/22 09:51 Nacl 0.9% IV NJ PRN Hypotension Metoclopramide HCl 2.5 mg 01/05/22 22:41 Metoclopramide 10 Mg/2 Ml Inj IV Q6H PRN Nausea And Vomiting Morphine Sulfate 2 mg 01/05/22 22:32 Morphine 2 Mg/1 Ml Inj IV Q4H PRN Pain, Moderate (4-6) Ondansetron HCl 4 mg 01/05/22 22:32 Ondansetron 4 Mg/2 Ml Inj IV Q8H PRN Nausea And Vomiting Oxycodone/Acetaminophen 1 tab 01/05/22 22:32 Oxycodone /Acetaminophen 5-325mg Tab PO Q6H PRN Pain, Moderate (4-6) Sodium Chloride 10 ml 01/06/22 10:00 01/06/22 21:36 Sodium Chloride 0.9% 10 Ml Flush Syringe IV Not Given BID DONTE Sodium Chloride 10 ml 01/05/22 22:32 Sodium Chloride 0.9% 10 Ml Flush Syringe IV PRN PRN LINE FLUSH Nutrition/Malnutrition Assess - Dietary Evaluation Nutrition/Malnutrition Findings: Nutrition Notes Start: 01/06/22 16:44 Freq: Status: Active Protocol: Document 01/06/22 16:44 JOSE (Rec: 01/06/22 17:15 JOSE [id number]) Nutrition Notes Need for Assessment generated from: MD Order Initial or Follow up Assessment Current Diagnosis CKD (stage V CKD),Hypertension ,Malnutrition Other Pertinent Diagnosis ESRD+HD, VasCath Displacement, Hyperkalemia. Current Diet Renal Diet + D Suppl (since B 01/06). Labs/Tests 01/06: Na 135, K 5.6, Cl 97.6, CO2 17, BUN 101, Crea 15.5, Ca 8.0. Pertinent Medications 01/06: Nutritionally unremarkable. 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 Weight Status Overweight Subjective/Other Information RD consult for Dietary Supplementation assessment. No reports available on Pt's PO intake of meals at the time , will assess at F/U. I will prescribe Dietary Supplements to support possible poor or insufficient PO intake of meals. Pt is on Room Air, O2 saturation @ 98%, according to Physical Assessment History notes. Pt has missing teeth, according to Physical Assessment History notes. Pt is legally blind, according to History & Physical notes. Pt presents VasCath dislodgement from R-Groin, according to History & Physical notes. Pt presents a nonfunctional Fistula on L-Arm, according to History & Physical notes. Plans to fix PermaCath on , according to Progress notes. Percent of energy/protein needs met: Prescribed Renal Diet provides for energy/protein needs (2, 072 Kcal/77 g) during LOS; additionally, Dietary Supplements will compensate for possible poor or insufficient PO intake of meals with 850 Kcal and 38 g of protein. Burn Absent Trauma Absent GI Symptoms None Food Allergy No Skin Integrity/Comment Catheter Access R-Groin. Minimum of two criteria No Fluid Accumulation N/A Reduced Shampoo Assistant Strength N/A (non-severe) Protein-Calorie Malnutrition N\A #1 Nutrition Diagnosis Predicted suboptimal energy intake Comments: Will assess Pt's PO intake of meals an need for continuation of ONS at F/U. Etiology Uncertain. As Evidenced by Signs and Symptoms MD concern for poor or insufficient PO intake of meals. Is patient on ventilator? No Is Patient Ambulatory and/or Out of Bed Yes [facility]) [ [id number] [id number]] Kcal/Kg value to use for calculation 19 Approximate Energy Requirements Using 1379 kcal/Kg Calculation Used for Recommendations Kcal/kg Additional Notes Protein: >1.2 g/Kg ABW; >88 g/ day. Fluids: 1 ml/Kcal, or as per MD. Nutrition Intervention Change Diet Order: Continue Renal Diet. Add Supplement/Snack (indicate name/kcal Start 8 fl oz Nepro w/ /protein ) CARBSTEADY; BID. Provides kCal: 850 Provides Protein (gm) 38 Goal #1 Compensate, through dietary supplementation, for possible poor or insufficient PO intake of meals during LOS. Goal #2 Adjust the dietary intervention to better serve Pt's needs and clinical conditions during LOS. Goal #3 Maintain body weight within +/ -3% of admission body weight during LOS. Follow-Up By: 01/10/22 Additional Comments Continue monitoring food tolerance, %PO intake of meals , and BM.
[2022-01-07] MEDS: oxyCODONE /ACETAMINOPHEN 5-325MG TAB PO PRN (10:10)
[2022-01-07] MEDS: FAMOTIDINE 10 MG TAB PO SCH ×2 (10:10→21:00)
[2022-01-07] MEDS: CALCITRIOL 0.25 MCG CAP PO SCH (10:10)
--- NOTE | 2022-01-07 12:28 | Progress Note ---
Assessment and Plan (1) Displacement of vascular dialysis catheter, initial encounter (2) ESRD (end stage renal disease) on dialysis (3) Hyperkalemia (4) HTN (hypertension) -Vascular consulted to fix dialysis access, HD afterwards -K better with Kayxelate yesterday, Low K diet -Moved to [place] from [place] recently, consult CM to place at [facility] -Pt consents to and is agreeable to dialysis Subjective Date of service: 01/07/22 Interval history: NAD. Dialysis access not working. Objective - Exam Narrative Exam: General appearance: Present: no acute distress, well-nourished - EENT Eyes: Present: PERRL ENT: hearing intact, clear oral mucosa - Neck Neck: Present: supple, normal ROM - Respiratory Respiratory effort: normal Respiratory: bilateral: CTA - Cardiovascular Heart rate: 78 Rhythm: regular Heart Sounds: Present: S1 & S2. Absent: rub, click - Extremities Extremities: no ischemia, pulses intact, pulses symmetrical, No edema Peripheral Pulses: within normal limits - Abdominal General gastrointestinal: Present: soft, non-tender, non-distended, normal bowel sounds Female genitourinary: Present: normal - Integumentary Integumentary: Present: clear, warm, dry - Musculoskeletal Musculoskeletal: gait normal, strength equal bilaterally - Psychiatric Psychiatric: appropriate mood/affect, intact judgment & insight - Neurologic Neurologic: CNII-XII intact, moves all extremities - Allied Health Allied health notes reviewed: nursing, case management - Vital Signs Vital signs: Vital Signs - 12hr 01/07/22 01/07/22 01/07/22 03:43 07:38 10:00 Temperature 98.4 F 100.6 F H Pulse Rate 110 H 133 H Respiratory 16 Rate Blood Pressure 160/86 147/73 O2 Sat by Pulse 97 97 99 Oximetry 01/07/22 11:12 Temperature Pulse Rate 136 H Respiratory Rate Blood Pressure O2 Sat by Pulse Oximetry - Lab 01/06/22 05:41 01/07/22 05:57 Most recent lab results Calcium 8.7 mg/dL (8.4-10.2) 01/07/22 05:57 Medications & Allergies - Medications Allergies/Adverse Reactions: Allergies sulfamethoxazole [From Bactrim] Allergy (Verified 01/05/22 19:51) Hives trimethoprim [From Bactrim] Allergy (Verified 01/05/22 19:51) Hives Home Medications: Home Medications Medication Instructions Recorded Confirmed Last Taken Type No Known Home Medications [No 01/07/22 01/07/22 Unknown History Reported Home Medications] Active Medications: Generic Name Dose Route Start Last Admin Trade Name Freq PRN Reason Stop Dose Admin Acetaminophen 650 mg 01/05/22 22:32 Acetaminophen 325 Mg Tab PO Q4H PRN Pain MILD(1-3)/Fever >100.5/JARAMILLO Calcitriol 0.25 mcg 01/06/22 10:00 01/07/22 10:10 Calcitriol 0.25 Mcg Cap PO 0.25 mcg QDAY DONTE Administration Famotidine 10 mg 01/06/22 10:00 01/07/22 10:10 Famotidine 10 Mg Tab PO 10 mg BID DONTE Administration Hydromorphone HCl 0.5 mg 01/05/22 22:32 Hydromorphone 0.5 Mg/0.5 Ml Inj IV Q3H PRN Pain , Severe (7-10) Sodium Chloride 100 mls @ 999 mls/hr 01/06/22 09:51 Nacl 0.9% IV NJ PRN Hypotension Metoclopramide HCl 2.5 mg 01/05/22 22:41 Metoclopramide 10 Mg/2 Ml Inj IV Q6H PRN Nausea And Vomiting Morphine Sulfate 2 mg 01/05/22 22:32 Morphine 2 Mg/1 Ml Inj IV Q4H PRN Pain, Moderate (4-6) Ondansetron HCl 4 mg 01/05/22 22:32 Ondansetron 4 Mg/2 Ml Inj IV Q8H PRN Nausea And Vomiting Oxycodone/Acetaminophen 1 tab 01/05/22 22:32 01/07/22 10:10 Oxycodone /Acetaminophen 5-325mg Tab PO 1 tab Q6H PRN Administration Pain, Moderate (4-6) Sodium Bicarbonate 1,300 mg 01/07/22 14:00 Sodium Bicarbonate 650 Mg Tab PO TID DONTE Sodium Chloride 10 ml 01/06/22 10:00 01/07/22 10:11 Sodium Chloride 0.9% 10 Ml Flush Syringe IV 10 ml BID DONTE Administration Sodium Chloride 10 ml 01/05/22 22:32 Sodium Chloride 0.9% 10 Ml Flush Syringe IV PRN PRN LINE FLUSH
[2022-01-07] MEDS: SODIUM BICARBONATE 650 MG TAB PO SCH ×2 (14:09→21:00)
[2022-01-08] MEDS: SODIUM BICARBONATE 650 MG TAB PO SCH ×3 (09:19→21:29)
[2022-01-08] MEDS ORDERED: HEPARIN 10,000 UNITS/10 ML VIAL ONE (10:22)
[2022-01-08] MEDS ORDERED: SODIUM CHLORIDE 0.9% 250ML 250 ML ONE (10:24)
--- NOTE | 2022-01-08 11:08 | Progress Note ---
Assessment and Plan Assessment and plan: 46 YO Female HD#2 with end-stage renal disease, hyperkalemia, dislodgment of dialysis catheter. Patient pending permacath placement in a.m. patient request pain medications at time of evaluation. No specific complaints. No reported nursing events. 01/08: Vascular procedure today for replacement of HD access. Blood pressure mildly elevated for patient with end-stage renal disease. Resume oral medica tion once procedure is done. In the meantime IV as needed hydralazine. Patient tells me that she has a history of hypoglycemia due to her recent weight loss journey but refuses to be on D5. We will order some oral as needed glucose if hypoglycemic noted. Anticipate discharge in a.m. once HD catheter access is established and outpatient HD established as patient has recently changed her address #Displacement of vascular dialysis catheter #ESRD on hemodialysis -Access: No longer present; originally in right femoral -Outpatient schedule: N/A -HD center: Unknown -Nephrology consulted; appreciate recs. -Vascular surgery consulted; pending recs -Renally dose medications and avoid nephrotoxic drugs. Renal diet. #Hyperkalemia Potassium 5.6 Ordered calcium gluconate, D50, regular insulin 5 units IV for medical management of hyperkalemia Patient refusing treatment. Continue to monitor with daily BMP. Should improve once patient undergoes hemodialysis. #Hypertension - home medications: Unknown - current medications: Currently holding as the patient is normotensive - SBP goal <160 and DBP goal <90 while inpatient - continue to monitor #Hypocalcemia Calcium 8.0 Starting calcitriol 0.25 mg daily #Mild protein caloric malnutrition Albumin 3.2 Starting dietary supplementation DVT and GI prophylaxis History Interval history: Patient seen and examined awaiting reevaluation of HD access. She tells me that she has a history of hypoglycemia but does not want to be on IV fluids while she is n.p.o. Hospitalist Physical - Physical exam Narrative exam: General appearance: Present: no acute distress, well-nourished, other (Legally blind) - EENT ENT: hearing intact, clear oral mucosa - Neck Neck: Present: supple, normal ROM - Respiratory Respiratory effort: normal Respiratory: bilateral: CTA - Cardiovascular Rhythm: regular Heart Sounds: Present: S1 & S2 - Extremities Extremities: no ischemia, pulses intact, pulses symmetrical, No edema, normal temperature, normal color Peripheral Pulses: within normal limits - Abdominal General gastrointestinal: soft, non-tender, non-distended, normal bowel sounds - Integumentary Integumentary: Present: clear, warm, dry - Psychiatric Psychiatric: appropriate mood/affect, intact judgment & insight, memory intact, cooperative - Neurologic Neurologic: CNII-XII intact, moves all extremities - Allied Health Allied health notes reviewed: nursing - Constitutional Vitals: Temp Pulse Resp BP Pulse Ox 98.5 F 105 H 16 156/110 100 01/08/22 08:10 01/08/22 08:10 01/08/22 08:10 01/08/22 08:10 01/08/22 08:10 General appearance: Present: no acute distress, well-nourished, other (Legally blind) HEART Score - HEART Score Age: 45-65 Risk factors: 1-2 risk factors Troponin: 1-3x normal limit - Critical Actions Critical Actions: 4-6 pts:12-16.6% risk of adverse cardiac event. Should be a dmitted Results - Labs CBC & Chem 7: 01/06/22 05:41 01/07/22 05:57 Labs: Laboratory Last Values WBC 8.9 K/mm3 (4.5-11.0) 01/06/22 05:41 RBC 3.03 M/mm3 (3.65-5.03) L 01/06/22 05:41 Hgb 9.5 gm/dl (10.1-14.3) L 01/06/22 05:41 Hct 28.9 % (30.3-42.9) L 01/06/22 05:41 MCV 96 fl (79-97) 01/06/22 05:41 MCH 31 pg (28-32) 01/06/22 05:41 MCHC 33 % (30-34) 01/06/22 05:41 RDW 15.4 % (13.2-15.2) H 01/06/22 05:41 Plt Count 208 K/mm3 (140-440) 01/06/22 05:41 Lymph % (Auto) 14.5 % (13.4-35.0) 01/06/22 05:41 Sullivan % (Auto) 6.7 % (0.0-7.3) 01/06/22 05:41 Eos % (Auto) 3.1 % (0.0-4.3) 01/06/22 05:41 Baso % (Auto) 0.5 % (0.0-1.8) 01/06/22 05:41 Lymph # (Auto) 1.3 K/mm3 (1.2-5.4) 01/06/22 05:41 Sullivan # (Auto) 0.6 K/mm3 (0.0-0.8) 01/06/22 05:41 Eos # (Auto) 0.3 K/mm3 (0.0-0.4) 01/06/22 05:41 Baso # (Auto) 0.0 K/mm3 (0.0-0.1) 01/06/22 05:41 Add Manual Diff Complete 01/05/22 17:34 Total Counted 100 01/05/22 17:34 Seg Neutrophils % 75.2 % (40.0-70.0) H 01/06/22 05:41 Seg Neuts % (Manual) 91.0 % (40.0-70.0) H 01/05/22 17:34 Band Neutrophils % 0 % 01/05/22 17:34 Lymphocytes % (Manual) 1.0 % (13.4-35.0) L 01/05/22 17:34 Reactive Lymphs % (Man) 0 % 01/05/22 17:34 Monocytes % (Manual) 6.0 % (0.0-7.3) 01/05/22 17:34 Eosinophils % (Manual) 1.0 % (0.0-4.3) 01/05/22 17:34 Basophils % (Manual) 1.0 % (0.0-1.8) 01/05/22 17:34 Metamyelocytes % 0 % 01/05/22 17:34 Myelocytes % 0 % 01/05/22 17:34 Promyelocytes % 0 % 01/05/22 17:34 Blast Cells % 0 % 01/05/22 17:34 Nucleated RBC % Not Reportable 01/05/22 17:34 Seg Neutrophils # 6.7 K/mm3 (1.8-7.7) 01/06/22 05:41 Seg Neutrophils # Man 10.1 K/mm3 (1.8-7.7) H 01/05/22 17:34 Band Neutrophils # 0.0 K/mm3 01/05/22 17:34 Lymphocytes # (Manual) 0.1 K/mm3 (1.2-5.4) L 01/05/22 17:34 Abs React Lymphs (Man) 0.0 K/mm3 01/05/22 17:34 Monocytes # (Manual) 0.7 K/mm3 (0.0-0.8) 01/05/22 17:34 Eosinophils # (Manual) 0.1 K/mm3 (0.0-0.4) 01/05/22 17:34 Basophils # (Manual) 0.1 K/mm3 (0.0-0.1) 01/05/22 17:34 Metamyelocytes # 0.0 K/mm3 01/05/22 17:34 Myelocytes # 0.0 K/mm3 01/05/22 17:34 Promyelocytes # 0.0 K/mm3 01/05/22 17:34 Blast Cells # 0.0 K/mm3 01/05/22 17:34 WBC Morphology Not Reportable 01/05/22 17:34 Hypersegmented Neuts Not Reportable 01/05/22 17:34 Hyposegmented Neuts Not Reportable 01/05/22 17:34 Hypogranular Neuts Not Reportable 01/05/22 17:34 Smudge Cells Not Reportable 01/05/22 17:34 Toxic Granulation Not Reportable 01/05/22 17:34 Toxic Vacuolation Not Reportable 01/05/22 17:34 Dohle Bodies Not Reportable 01/05/22 17:34 Pelger-Huet Anomaly Not Reportable 01/05/22 17:34 Griselda Rods Not Reportable 01/05/22 17:34 Platelet Estimate Consistent w auto 01/05/22 17:34 Clumped Platelets Not Reportable 01/05/22 17:34 Plt Clumps, EDTA Not Reportable 01/05/22 17:34 Large Platelets Not Reportable 01/05/22 17:34 Giant Platelets Not Reportable 01/05/22 17:34 Platelet Satelliting Not Reportable 01/05/22 17:34 Plt Morphology Comment Not Reportable 01/05/22 17:34 RBC Morphology Not Reportable 01/05/22 17:34 Dimorphic RBCs Not Reportable 01/05/22 17:34 Polychromasia Not Reportable 01/05/22 17:34 Hypochromasia Not Reportable 01/05/22 17:34 Poikilocytosis Not Reportable 01/05/22 17:34 Anisocytosis Not Reportable 01/05/22 17:34 Microcytosis Not Reportable 01/05/22 17:34 Macrocytosis Not Reportable 01/05/22 17:34 Spherocytes Not Reportable 01/05/22 17:34 Pappenheimer Bodies Not Reportable 01/05/22 17:34 Sickle Cells Not Reportable 01/05/22 17:34 Target Cells Not Reportable 01/05/22 17:34 Tear Drop Cells Not Reportable 01/05/22 17:34 Ovalocytes Few 01/05/22 17:34 Helmet Cells Not Reportable 01/05/22 17:34 [place] Bodies Not Reportable 01/05/22 17:34 [place] Rings Not Reportable 01/05/22 17:34 Marleny Cells Not Reportable 01/05/22 17:34 Bite Cells Not Reportable 01/05/22 17:34 Crenated Cell Not Reportable 01/05/22 17:34 Elliptocytes Not Reportable 01/05/22 17:34 Acanthocytes (Spur) Not Reportable 01/05/22 17:34 Rouleaux Not Reportable 01/05/22 17:34 Hemoglobin C Crystals Not Reportable 01/05/22 17:34 Schistocytes Not Reportable 01/05/22 17:34 Malaria parasites Not Reportable 01/05/22 17:34 Niall Bodies Not Reportable 01/05/22 17:34 Hem Pathologist Commnt No 01/05/22 17:34 PT 13.7 Sec. (12.2-14.9) 01/05/22 17:34 INR 0.95 (0.87-1.13) 01/05/22 17:34 APTT 31.2 Sec. (24.2-36.6) 01/05/22 17:34 Sodium 138 mmol/L (137-145) 01/07/22 05:57 Potassium 3.9 mmol/L (3.6-5.0) D 01/07/22 05:57 Chloride 98.0 mmol/L (98-107) 01/07/22 05:57 Carbon Dioxide 15 mmol/L (22-30) L 01/07/22 05:57 Anion Gap 29 mmol/L 01/07/22 05:57 BUN 98 mg/dL (7-17) H 01/07/22 05:57 Creatinine 15.3 mg/dL (0.6-1.2) H 01/07/22 05:57 Estimated GFR 3 ml/min 01/07/22 05:57 BUN/Creatinine Ratio 6 % 01/07/22 05:57 Glucose 73 mg/dL (65-100) 01/07/22 05:57 Calcium 8.7 mg/dL (8.4-10.2) 01/07/22 05:57 Total Bilirubin 0.30 mg/dL (0.1-1.2) 01/06/22 05:41 AST 7 units/L (5-40) 01/06/22 05:41 ALT < 5 units/L (7-56) L 01/06/22 05:41 Alkaline Phosphatase 197 units/L (35-129) H 01/06/22 05:41 Total Protein 6.7 g/dL (6.3-8.2) 01/06/22 05:41 Albumin 3.2 g/dL (3.9-5) L 01/06/22 05:41 Albumin/Globulin Ratio 0.9 % 01/06/22 05:41 HCG, Quant < 2 mIU/mL (0-4) 01/05/22 14:35 Urine Color Straw (Yellow) 01/05/22 21:47 Urine Turbidity Clear (Clear) 01/05/22 21:47 Urine pH 7.0 (5.0-7.0) 01/05/22 21:47 Ur Specific [place] 1.010 (1.003-1.030) 01/05/22 21:47 Urine Protein 100 mg/dl mg/dL (Negative) 01/05/22 21:47 Urine Glucose (UA) 150 mg/dL (Negative) 01/05/22 21:47 Urine Ketones Neg mg/dL (Negative) 01/05/22 21:47 Urine Blood Neg (Negative) 01/05/22 21:47 Urine Nitrite Neg (Negative) 01/05/22 21:47 Urine Bilirubin Neg (Negative) 01/05/22 21:47 Urine Urobilinogen < 2.0 mg/dL (<2.0) 01/05/22 21:47 Ur Leukocyte Esterase Neg (Negative) 01/05/22 21:47 Urine WBC (Auto) 2.0 /HPF (0.0-6.0) 01/05/22 21:47 Urine RBC (Auto) 1.0 /HPF (0.0-6.0) 01/05/22 21:47 U Epithel Cells (Auto) 3.0 /HPF (0-13.0) 01/05/22 21:47 Hepatitis A IgM Ab Non-reactive (NonReactive) 01/05/22 21:00 Hep Bs Antigen Non-reactive (Negative) 01/05/22 21:00 Hep B Core IgM Ab Non-reactive (NonReactive) 01/05/22 21:00 Hepatitis C Antibody Non-reactive (NonReactive) 01/05/22 21:00 [place]al[place]/IV: Voiding Method Bedside Commode Active Medications - Current Medications Current Medications: Generic Name Dose Route Start Last Admin Trade Name Freq PRN Reason Stop Dose Admin Acetaminophen 650 mg 01/05/22 22:32 Acetaminophen 325 Mg Tab PO Q4H PRN Pain MILD(1-3)/Fever >100.5/JARAMILLO Calcitriol 0.25 mcg 01/06/22 10:00 01/07/22 10:10 Calcitriol 0.25 Mcg Cap PO 0.25 mcg QDAY DONTE Administration Famotidine 10 mg 01/06/22 10:00 01/07/22 21:00 Famotidine 10 Mg Tab PO 10 mg BID DONTE Administration Hydromorphone HCl 0.5 mg 01/05/22 22:32 Hydromorphone 0.5 Mg/0.5 Ml Inj IV Q3H PRN Pain , Severe (7-10) Sodium Chloride 100 mls @ 999 mls/hr 01/06/22 09:51 Nacl 0.9% IV NJ PRN Hypotension Metoclopramide HCl 2.5 mg 01/05/22 22:41 Metoclopramide 10 Mg/2 Ml Inj IV Q6H PRN Nausea And Vomiting Morphine Sulfate 2 mg 01/05/22 22:32 Morphine 2 Mg/1 Ml Inj IV Q4H PRN Pain, Moderate (4-6) Ondansetron HCl 4 mg 01/05/22 22:32 Ondansetron 4 Mg/2 Ml Inj IV Q8H PRN Nausea And Vomiting Oxycodone/Acetaminophen 1 tab 01/05/22 22:32 01/07/22 10:10 Oxycodone /Acetaminophen 5-325mg Tab PO 1 tab Q6H PRN Administration Pain, Moderate (4-6) Sodium Bicarbonate 1,300 mg 01/07/22 14:00 01/08/22 09:19 Sodium Bicarbonate 650 Mg Tab PO Not Given TID DONTE Sodium Chloride 10 ml 01/06/22 10:00 01/07/22 21:01 Sodium Chloride 0.9% 10 Ml Flush Syringe IV Not Given BID DONTE Sodium Chloride 10 ml 01/05/22 22:32 Sodium Chloride 0.9% 10 Ml Flush Syringe IV PRN PRN LINE FLUSH Nutrition/Malnutrition Assess - Dietary Evaluation Nutrition/Malnutrition Findings: Nutrition Notes Start: 01/06/22 16:44 Freq: Status: Active Protocol: Document 01/06/22 16:44 JOSE (Rec: 01/06/22 17:15 JOSE [id number]) Nutrition Notes Need for Assessment generated from: MD Order Initial or Follow up Assessment Current Diagnosis CKD (stage V CKD),Hypertension ,Malnutrition Other Pertinent Diagnosis ESRD+HD, VasCath Displacement, Hyperkalemia. Current Diet Renal Diet + D Suppl (since B 01/06). Labs/Tests 01/06: Na 135, K 5.6, Cl 97.6, CO2 17, BUN 101, Crea 15.5, Ca 8.0. Pertinent Medications 01/06: Nutritionally unremarkable. 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 Weight Status Overweight Subjective/Other Information RD consult for Dietary Supplementation assessment. No reports available on Pt's PO intake of meals at the time , will assess at F/U. I will prescribe Dietary Supplements to support possible poor or insufficient PO intake of meals. Pt is on Room Air, O2 saturation @ 98%, according to Physical Assessment History notes. Pt has missing teeth, according to Physical Assessment History notes. Pt is legally blind, according to History & Physical notes. Pt presents VasCath dislodgement from R-Groin, according to History & Physical notes. Pt presents a nonfunctional Fistula on L-Arm, according to History & Physical notes. Plans to fix PermaCath on , according to Progress notes. Percent of energy/protein needs met: Prescribed Renal Diet provides for energy/protein needs (2, 072 Kcal/77 g) during LOS; additionally, Dietary Supplements will compensate for possible poor or insufficient PO intake of meals with 850 Kcal and 38 g of protein. Burn Absent Trauma Absent GI Symptoms None Food Allergy No Skin Integrity/Comment Catheter Access R-Groin. Minimum of two criteria No Fluid Accumulation N/A Reduced Concert Pianist Strength N/A (non-severe) Protein-Calorie Malnutrition N\A #1 Nutrition Diagnosis Predicted suboptimal energy intake Comments: Will assess Pt's PO intake of meals an need for continuation of ONS at F/U. Etiology Uncertain. As Evidenced by Signs and Symptoms MD concern for poor or insufficient PO intake of meals. Is patient on ventilator? No Is Patient Ambulatory and/or Out of Bed Yes REE-(Davis-St. Jeor-ambulatory/OOB) [ 1735.344 [id number]] Kcal/Kg value to use for calculation 19 Approximate Energy Requirements Using 1379 kcal/Kg Calculation Used for Recommendations Kcal/kg Additional Notes Protein: >1.2 g/Kg ABW; >88 g/ day. Fluids: 1 ml/Kcal, or as per MD. Nutrition Intervention Change Diet Order: Continue Renal Diet. Add Supplement/Snack (indicate name/kcal Start 8 fl oz Nepro w/ /protein ) CARBSTEADY; BID. Provides kCal: 850 Provides Protein (gm) 38 Goal #1 Compensate, through dietary supplementation, for possible poor or insufficient PO intake of meals during LOS. Goal #2 Adjust the dietary intervention to better serve Pt's needs and clinical conditions during LOS. Goal #3 Maintain body weight within +/ -3% of admission body weight during LOS. Follow-Up By: 01/10/22 Additional Comments Continue monitoring food tolerance, %PO intake of meals , and BM.
[2022-01-08] MEDS ORDERED: hydrALAZINE 20 MG/1 ML INJ IV PRN (11:09)
[2022-01-08] MEDS: MIDAZOLAM 2 MG/2 ML INJ ONE ×4 (11:21→11:59)
[2022-01-08] MEDS: LIDOCAINE 2%/EPINEPHRINE 1:200,000 VIAL (20 ML) INFILTRATI ONE ×2 (11:22→11:37)
[2022-01-08] MEDS: fentaNYL 100 MCG/2 ML INJ ONE ×4 (11:22→11:58)
[2022-01-08] MEDS: HEPARIN/NS 5000 UNIT/500ML 500 ML IR ONE ×2 (11:23→11:50)
[2022-01-08] MEDS ORDERED: LIDOCAINE 2%/EPINEPHRINE 1:200,000 VIAL (20 ML) INFILTRATI ONE (12:03)
[2022-01-08] MEDS ORDERED: HEPARIN/NS 5000 UNIT/500ML 500 ML IR ONE (12:17)
--- NOTE | 2022-01-08 12:41 | Progress Note ---
Assessment and Plan Assessment: Displacement of vascular dialysis catheter, initial encounter ESRD (end stage renal disease) on dialysis Hyperkalemia HTN (hypertension) Acidosis Plan: -Vascular plan to do intervention to patient's access today -Hemodialysis after vascular intervention today for UF and clearance -On Sodium Bicarbonate 1300 mg po TID -Fluid restriction of 1 liter per day -Low K diet -Moved to [place] from [place] recently, CM consulted to place at [place] HD unit -Obtain daily weights -Assess dialysis needs daily -Plan of care reviewed by Dr. Chavez Subjective Date of service: 01/08/22 Interval history: Patient off floor in [facility]. Objective - Vital Signs Vital signs: Vital Signs - 12hr 01/08/22 01/08/22 01/08/22 04:30 08:10 11:00 Temperature 98.3 F 98.5 F Pulse Rate 92 H 105 H Respiratory 18 16 18 Rate Blood Pressure 142/73 156/110 O2 Sat by Pulse 97 100 97 Oximetry - Lab 01/06/22 05:41 01/07/22 05:57 Most recent lab results Calcium 8.7 mg/dL (8.4-10.2) 01/07/22 05:57 Medications & Allergies - Medications Allergies/Adverse Reactions: Allergies sulfamethoxazole [From Bactrim] Allergy (Verified 01/08/22 12:51) Hives trimethoprim [From Bactrim] Allergy (Verified 01/08/22 12:50) Hives sevelamer [From Renvela] Adverse Reaction (Verified 01/08/22 12:50) Constipation Home Medications: Home Medications Medication Instructions Recorded Confirmed Last Taken Type No Known Home Medications [No 01/07/22 01/07/22 Unknown History Reported Home Medications] Active Medications: Generic Name Dose Route Start Last Admin Trade Name Freq PRN Reason Stop Dose Admin Acetaminophen 650 mg 01/05/22 22:32 Acetaminophen 325 Mg Tab PO Q4H PRN Pain MILD(1-3)/Fever >100.5/JARAMILLO Calcitriol 0.25 mcg 01/06/22 10:00 01/07/22 10:10 Calcitriol 0.25 Mcg Cap PO 0.25 mcg QDAY DONTE Administration Famotidine 10 mg 01/06/22 10:00 01/07/22 21:00 Famotidine 10 Mg Tab PO 10 mg BID DONTE Administration Hydralazine HCl 10 mg 01/08/22 11:09 Hydralazine 20 Mg/1 Ml Inj IV Q4HR PRN Hypertension Hydromorphone HCl 0.5 mg 01/05/22 22:32 Hydromorphone 0.5 Mg/0.5 Ml Inj IV Q3H PRN Pain , Severe (7-10) Sodium Chloride 100 mls @ 999 mls/hr 01/06/22 09:51 Nacl 0.9% IV NJ PRN Hypotension Metoclopramide HCl 2.5 mg 01/05/22 22:41 Metoclopramide 10 Mg/2 Ml Inj IV Q6H PRN Nausea And Vomiting Morphine Sulfate 2 mg 01/05/22 22:32 Morphine 2 Mg/1 Ml Inj IV Q4H PRN Pain, Moderate (4-6) Ondansetron HCl 4 mg 01/05/22 22:32 Ondansetron 4 Mg/2 Ml Inj IV Q8H PRN Nausea And Vomiting Oxycodone/Acetaminophen 1 tab 01/05/22 22:32 01/07/22 10:10 Oxycodone /Acetaminophen 5-325mg Tab PO 1 tab Q6H PRN Administration Pain, Moderate (4-6) Sodium Bicarbonate 1,300 mg 01/07/22 14:00 01/08/22 09:19 Sodium Bicarbonate 650 Mg Tab PO Not Given TID DONTE Sodium Chloride 10 ml 01/06/22 10:00 01/07/22 21:01 Sodium Chloride 0.9% 10 Ml Flush Syringe IV Not Given BID DONTE Sodium Chloride 10 ml 01/05/22 22:32 Sodium Chloride 0.9% 10 Ml Flush Syringe IV PRN PRN LINE FLUSH
[2022-01-08] MEDS: FAMOTIDINE 10 MG TAB PO SCH ×2 (13:03→21:29)
--- NOTE | 2022-01-08 14:00 | XRay Report ---
CHEST 1 VIEW 01/08/2022 1:15 PM INDICATION / CLINICAL INFORMATION: HD placement. COMPARISON: None available. FINDINGS: SUPPORT DEVICES: Left IJ permacath terminates just below the cavoatrial junction in good position. HEART / MEDIASTINUM: No significant abnormality. LUNGS / PLEURA: No significant pulmonary or pleural abnormality. No pneumothorax. ADDITIONAL FINDINGS: No significant additional findings. IMPRESSION: Adequate placement of the left permacath. No pneumothorax. Signer Name: Dennis Acosta Jr, MD Signed: 01/08/2022 1:56 PM Workstation Name: [id number]
--- NOTE | 2022-01-08 15:21 | Operative Report ---
Operative Report Operative Report: EXAM: 1. Ultrasound-guided puncture of the left external jugular vein 2. Selection of the left innominate vein, SVC, and IVC with left innominate vein, SVC and left external jugular vein venography. 3. Angioplasty of the left innominate vein and SVC with a 12 mm x 60 mm angioplasty balloon. 4. Fluoroscopic-guided placement of a left internal jugular tunneled cuffed hemodialysis catheter. DATE: 01/08/2022 INDICATION: End-stage renal disease requiring PermCath placement. MEDICATIONS: Please see nursing report for full details. DEVICES: 27 cm tip to cuff 15 Fr dual lumen hemodialysis catheter RN CARDIOVASCULAR ICU: MARCIN MURRAY MD CONTRAST: None PROCEDURE: The risks, benefits, and alternatives were discussed and informed consent was obtained. The patient was transported to the angiography suite in satisfactory/stable condition and was transported onto the angiography table. The patient's left external jugular vein was assessed with ultrasound and determined to be patent prior to procedure. The patient was prepped and draped in a sterile fashion. The puncture site was anesthetized. Under sonographic guidance, the left external jugular vein was punctured with a 21-gauge micropuncture needle and a 0.018 inch wire was advanced into the left external jugular vein. Under fluoroscopic guidance, the inner portion of a transitional dilator was advanced over the wire. Digital subtraction angiography was performed demonstrating multiple torturous veins extending to the left innominate v ein/central subclavian vein. 0.018 inch Glaudius wire was then passed into the SVC. This was done with roadmap imaging. Transitional dilator was then reassembled and advanced over the wire. Wire was removed and digital subtraction angiography was performed demonstrating 70% stenosis of the left innominate vein and proximal SVC. Glidewire advantage was then passed into the SVC and a 7 Wol[place] 25 cm [place] sheath was advanced over the wire and with the use of a angled catheter and Glidewire advantage, the IVC was selected. 12 mm x 60 mm angioplasty balloon was used to perform angioplasty of the left innominate vein and proximal SVC. After this was performed, digital subtraction angiography was performed demonstrating less than 20% residual narrowing of the proximal SVC and less than 10% residual narrowing of the left innominate vein. A suitable exit site was identified on the patient's chest inferior and lateral to the venotomy. The site was anesthetized with local anesthetic and the track was anesthetized. Dermatotomy was made. The PermCath was attached to the tunneling device and tunneled between the dermatotomy to the venotomy. Over the 0.035 inch wire, serial dilatation was performed with ultimate placement of a peel-away sheath. The catheter was advanced through the peel- away sheath after the wire was removed and positioned centrally under fluoroscopic guidance. The peel-away sheath was removed. Catheter unfortunately it was in the distal left innominate vein and required placement of 2 Glidewire advantage is into the IVC with use of a stiffener to advance the catheter to the cavoatrial junction. This was performed and the catheter was then able to aspirate and flush without issue after all wires and stiffness were removed. 4-0 Vicryl suture was used to close the venotomy and Dermabond was then applied. 2-0 Ethilon suture was used to secure the catheter at the dermatotomy. The catheter was charged with heparin 1000 units/mL of space. Sterile dressing and Biopatch applied. The patient was transferred from the angiography suite back to the floor in stable condition. FINDINGS: 1. Excellent flow was obtained through the dialysis catheter with 20 mL syringes. 2. The catheter tip is in the right atrium. IMPRESSION: 1. Successful ultrasound and fluoroscopically guided placement of a left external jugular tunneled cuffed hemodialysis catheter. 2. Angioplasty of the central veins with venography as described above.
[2022-01-08] MEDS ORDERED: SENNOSIDES 8.6 MG TAB PO PRN (21:18)
[2022-01-08] MEDS: oxyCODONE /ACETAMINOPHEN 5-325MG TAB PO PRN (21:28)
[2022-01-08] MEDS: CALCITRIOL 0.25 MCG CAP PO SCH (21:29)
[2022-01-09 05:47] LABS: Calcium 8.6 mg/dL (8.4-10.2)
[2022-01-09 08:17] VITALS: BP 151/78
[2022-01-09] MEDS: SODIUM BICARBONATE 650 MG TAB PO SCH ×2 (09:09→13:43)
[2022-01-09] MEDS: FAMOTIDINE 10 MG TAB PO SCH (09:09)
[2022-01-09] MEDS: CALCITRIOL 0.25 MCG CAP PO SCH (09:09)
[2022-01-09] MEDS ORDERED: carvediloL 6.25 MG TAB PO SCH (10:00)
[2022-01-09] MEDS ORDERED: amLODIPine 10 MG TAB PO SCH (10:00)
--- NOTE | 2022-01-09 11:30 | Discharge Summary ---
Providers - Providers Date of Admission: 01/05/22 17:40 Date of discharge: 01/09/22 Attending physician: DENNIS RIOS 01/05/22 17:32 Consult to Physician [CONS] Stat Comment: Consulting Provider: PALLAVI MELGAR Physician Instructions: suggested admission to hospitalist and Marniexagerman Reason For Exam: dislodged dialysis catheter/ ESRD 01/06/22 07:05 Consult to Physician [CONS] Routine Comment: Consulting Provider: MARCIN GLOVER Physician Instructions: Reason For Exam: vas cath dislodgment 01/07/22 16:36 Consult to Case Management [CONS] Routine Services Needed at Discharge: Other Notified:: manager case management Comment:: place patient at [facility] Primary care physician: CONFERENCE SERVICES MANAGER Hospitalization Condition: Good Hospital course: 46 YO Female HD#2 with end-stage renal disease, hyperkalemia, dislodgment of dialysis catheter. Patient pending permacath placement in a.m. patient request pain medications at time of evaluation. No specific complaints. No reported nursing events. 01/08: Vascular procedure today for replacement of HD access. Blood pressure mildly elevated for patient with end-stage renal disease. Resume oral medication once procedure is done. In the meantime IV as needed hydralazine. Patient tells me that she has a history of hypoglycemia due to her recent weight loss journey but refuses to be on D5. We will order some oral as needed glucose if hypoglycemic noted. Anticipate discharge in a.m. once HD catheter access is established and outpatient HD established as patient has recently changed her address 01/09: Vascular procedure completed yesterday. IMPRESSION: 1. Successful ultrasound and fluoroscopically guided placement of a left external jugular tunneled cuffed hemodialysis catheter. 2. Angioplasty of the central veins with venography as described above. Patient tolerated dialysis without any problem. Patient will be discharged home today with outpatient follow-up. Patient was counseled to be compliant with outpatient dialysis, diet fluid restriction and medication management. She verbalized understanding Assessment and plan: #Displacement of vascular dialysis catheter #ESRD on hemodialysis -Access: No longer present; originally in right femoral -Outpatient schedule: N/A -HD center: Unknown -Nephrology consulted; appreciate recs. -Vascular surgery consulted; replaced vascular dialysis cath -Renally dose medications and avoid nephrotoxic drugs. Renal diet. #Hyperkalemia Potassium 5.6 Ordered calcium gluconate, D50, regular insulin 5 units IV for medical management of hyperkalemia Patient refusing treatment. Continue to monitor with daily BMP. improved once patient undergoes hemodialysis. #Hypertension - home medications: Unknown - current medications: Currently holding as the patient is normotensive - SBP goal <160 and DBP goal <90 while inpatient - continue to monitor #Hypocalcemia Calcium 8.0 Starting calcitriol 0.25 mg daily #Mild protein caloric malnutrition Albumin 3.2 Starting dietary supplementation DVT and GI prophylaxis Disposition: HOME / SELF CARE / HOMELESS Final Discharge Diagnosis (Prints w/discharge instructions): #Displacement of vascular dialysis catheter. #ESRD on hemodialysis. #Hyperkalemia. #Hypertension. #Hypocalcemia. #Mild protein caloric malnutrition Time spent for discharge: 34 minutes Core Measure Documentation - Palliative Care Palliative Care/ Comfort Measures: Not Applicable - Core Measures Any of the following diagnoses?: none Exam - Physical Exam Narrative exam: General appearance: Present: no acute distress, well-nourished, other (Legally blind) - EENT ENT: hearing intact, clear oral mucosa - Neck Neck: Present: supple, normal ROM - Respiratory Respiratory effort: normal Respiratory: bilateral: CTA - Cardiovascular Rhythm: regular Heart Sounds: Present: S1 & S2 - Extremities Extremities: no ischemia, pulses intact, pulses symmetrical, No edema, normal temperature, normal color Peripheral Pulses: within normal limits - Abdominal General gastrointestinal: soft, non-tender, non-distended, normal bowel sounds - Integumentary Integumentary: Present: clear, warm, dry - Psychiatric Psychiatric: appropriate mood/affect, intact judgment & insight, memory intact, cooperative - Neurologic Neurologic: CNII-XII intact, moves all extremities - Allied Health Allied health notes reviewed: nursing - Constitutional Vitals: Temp Pulse Resp BP Pulse Ox 98.6 F 104 H 18 151/78 100 01/09/22 08:15 01/09/22 08:15 01/09/22 08:15 01/09/22 08:15 01/09/22 08:15 Plan Activity: advance as tolerated Diet: renal Special Instructions: restrict fluid intake to (1.2L per day) Additional Instructions: cont outpt scheduled HD Follow up with: PRIMARY CARE, [Primary Care Provider] - 3-5 Days Prescriptions: amLODIPine 10 mg PO QDAY #30 tablet carvediloL [Coreg] 6.25 mg PO BID #60 tablet calcitrioL [Rocaltrol] 0.25 mcg PO QDAY #30 capsule Sodium Bicarbonate 1,300 mg PO TID #90 tablet
--- NOTE | 2022-01-09 12:17 | Electrocardiograph Report ---
[facility] Test Date: 2022-01-06 Test Time: 07:03:10 Pat Name: MARTHA MALLORY Department: Room: A485 Gender: F Nipple Threader: NO : 1975 Requested By: JUAN MENDEZ Order Number: [id number] Reading MD: Ashley Hsu Measurements Intervals [place] Rate: 103 P: 74 MA: 208 QRS: 18 QRSD: 70 T: 69 QT: 344 QTc: 450 Interpretive Statements Sinus tachycardia Poor R wave progression Prolonged MA interval Low voltage, extremity leads No previous ECG available for comparison Electronically Signed On 01-09-2022 12:16:59 EDT by Ashley Hsu
--- NOTE | 2022-01-09 12:41 | Progress Note ---
Assessment and Plan Assessment: Displacement of vascular dialysis catheter, initial encounter ESRD (end stage renal disease) on dialysis Hyperkalemia HTN (hypertension) Acidosis Legally blind Plan: -S/P Hemodialysis yesterday for UF and clearance -On Sodium Bicarbonate 1300 mg po TID -Fluid restriction of 1 liter per day -Low K diet -Obtain daily weights -Assess dialysis needs daily -Moved to [place] [facility], CM onboard to place at [place] [facility], awaiting covid results -Plan of care reviewed by Dr. Chavez Subjective Date of service: 01/09/22 Interval history: Patient seen lying in bed. Patient is blind. States have transportation issues to get to places. Objective - Vital Signs Vital signs: Vital Signs - 12hr 01/09/22 01/09/22 01/09/22 03:23 04:00 08:15 Temperature 98.6 F 98.6 F Pulse Rate 103 H 102 H 104 H Respiratory 16 18 Rate Blood Pressure 138/69 151/78 O2 Sat by Pulse 96 100 Oximetry 01/09/22 11:09 Temperature Pulse Rate Respiratory 18 Rate Blood Pressure O2 Sat by Pulse 97 Oximetry - General Appearance General appearance: well-developed, appears stated age EENT: ATNC, PERRL, other (Blind) Neck: supple Respiratory: Present: Decreased Breath Sounds Cardiology: S1S2 Gastrointestinal: normoactive bowel sounds Integumentary: warm and dry Neurologic: alert and oriented x3 Musculoskeletal: other (No edema) - Lab 01/06/22 05:41 01/09/22 05:00 Most recent lab results Calcium 8.6 mg/dL (8.4-10.2) 01/09/22 05:00 Medications & Allergies - Medications Allergies/Adverse Reactions: Allergies sulfamethoxazole [From Bactrim] Allergy (Verified 01/08/22 12:51) Hives trimethoprim [From Bactrim] Allergy (Verified 01/08/22 12:50) Hives sevelamer [From Renvela] Adverse Reaction (Verified 01/08/22 12:50) Constipation Home Medications: Home Medications Medication Instructions Recorded Confirmed Last Taken Type Sodium Bicarbonate 1,300 mg PO TID #90 tablet 01/09/22 Unknown Rx amLODIPine 10 mg PO QDAY #30 tablet 01/09/22 Unknown Rx calcitrioL [Rocaltrol] 0.25 mcg PO QDAY #30 capsule 01/09/22 Unknown Rx carvediloL [Coreg] 6.25 mg PO BID #60 tablet 01/09/22 Unknown Rx Active Medications: Generic Name Dose Route Start Last Admin Trade Name Freq PRN Reason Stop Dose Admin Acetaminophen 650 mg 01/05/22 22:32 Acetaminophen 325 Mg Tab PO Q4H PRN Pain MILD(1-3)/Fever >100.5/JARAMILLO Amlodipine Besylate 10 mg 01/09/22 10:00 01/09/22 10:43 Amlodipine 10 Mg Tab PO 10 mg QDAY DONTE Administration Calcitriol 0.25 mcg 01/06/22 10:00 01/09/22 09:09 Calcitriol 0.25 Mcg Cap PO 0.25 mcg QDAY DONTE Administration Carvedilol 6.25 mg 01/09/22 10:00 01/09/22 10:43 Carvedilol 6.25 Mg Tab PO 6.25 mg BID DONTE Administration Famotidine 10 mg 01/06/22 10:00 01/09/22 09:09 Famotidine 10 Mg Tab PO 10 mg BID DONTE Administration Hydralazine HCl 10 mg 01/08/22 11:09 Hydralazine 20 Mg/1 Ml Inj IV Q4HR PRN Hypertension Hydromorphone HCl 0.5 mg 01/05/22 22:32 Hydromorphone 0.5 Mg/0.5 Ml Inj IV Q3H PRN Pain , Severe (7-10) Sodium Chloride 100 mls @ 999 mls/hr 01/06/22 09:51 Nacl 0.9% IV NJ PRN Hypotension Metoclopramide HCl 2.5 mg 01/05/22 22:41 Metoclopramide 10 Mg/2 Ml Inj IV Q6H PRN Nausea And Vomiting Morphine Sulfate 2 mg 01/05/22 22:32 Morphine 2 Mg/1 Ml Inj IV Q4H PRN Pain, Moderate (4-6) Ondansetron HCl 4 mg 01/05/22 22:32 Ondansetron 4 Mg/2 Ml Inj IV Q8H PRN Nausea And Vomiting Oxycodone/Acetaminophen 1 tab 01/05/22 22:32 01/08/22 21:28 Oxycodone /Acetaminophen 5-325mg Tab PO 1 tab Q6H PRN Administration Pain, Moderate (4-6) Senna 8.6 mg 01/08/22 21:18 Sennosides 8.6 Mg Tab PO Q12H PRN Laxative Effect Sodium Bicarbonate 1,300 mg 01/07/22 14:00 01/09/22 09:09 Sodium Bicarbonate 650 Mg Tab PO 1,300 mg TID DONTE Administration Sodium Chloride 10 ml 01/06/22 10:00 01/09/22 09:09 Sodium Chloride 0.9% 10 Ml Flush Syringe IV 10 ml BID DONTE Administration Sodium Chloride 10 ml 01/05/22 22:32 Sodium Chloride 0.9% 10 Ml Flush Syringe IV PRN PRN LINE FLUSH
--- NOTE | 2022-01-09 16:22 | Vascular Lab Report ---
DOPPLER ULTRASOUND UPPER EXTREMITY VENOUS MAPPING, BILATERAL INDICATION / CLINICAL INFORMATION: Vein mapping upper extremities TECHNIQUE: Grayscale, color and spectral Doppler imaging of the venous system of the right and left u pper extremities was performed. COMPARISON: None available. FINDINGS: RIGHT UPPER EXTREMITY: Brachial Artery (Diameter, in cm): 0.4, 83 cm/s Radial Artery (Diameter, in cm): 0.2, 69 cm/s Basilic Vein (Diameter, in cm): - Upper Arm: Not visualized. - Mid Arm: 0.5 - Lower Arm: 0.3 - Antecubital: 0.3 - Upper Forearm: 0.2 - Mid Forearm: 0.2 - Distal Forearm: 0.2 Cephalic Vein (Diameter, in cm): - Upper Arm: 0.4 - Mid Arm: 0.4 - Lower Arm: 0.3 - Antecubital: 0.5 - Upper Forearm: 0.2 - Mid Forearm: 0.2 - Distal Forearm: 0.2 LEFT UPPER EXTREMITY: Brachial Artery (Diameter, in cm): 0.4, 60 cm/s Radial Artery (Diameter, in cm): 0.1, 52 cm/s Basilic Vein (Diameter, in cm): The cranial basilic vein at the level of the proximal AVF appears occ luded. The remainder of the basilic vein is not visualized. Cephalic Vein (Diameter, in cm): - Upper Arm: 0.4 - Mid Arm: 0.4 - Lower Arm: 0.4 - Antecubital: 0.3 - Upper Forearm: 0.2 - Mid Forearm: 0.2 - Distal Forearm: 0.1 Additional Findings: Nonocclusive thrombus within the left internal jugular vein. IMPRESSION: 1. Upper extremity venous mapping as above. 2. Proximal left AVF appears occluded. The remainder of the left basilic vein is not visualized. 3. Nonocclusive DVT within the left internal jugular vein. Scribed by: Crystal Lujan RDMS, RVT, BRENTKS Scribed: 01/09/2022 2:31 PM I have reviewed the images, agree with this report, and edited this report as needed. Signer Name: Stephan Olivares MD Signed: 01/09/2022 4:18 PM Workstation Name: [id number]
== END 2022-01-09 16:38 | disposition home or self-care (01) | DRG 673 ==
LOC: ED 13:51 → OBSVTOIN 17:40 → INTOOBSV 17:40 → 4A 17:40
PROVIDERS: ADMIT Internal Medicine; ATTEND Internal Medicine
PROC: 0JH63XZ Insertion of Tunneled Vascular Access Device into Chest Subcutaneous Tissue and Fascia, Percutaneous Approach (ICD-10-PCS; principal; 2022-01-08)
PROC: 05743ZZ Dilation of Left Innominate Vein, Percutaneous Approach (ICD-10-PCS; 2022-01-08)
PROC: 027V3ZZ Dilation of Superior Vena Cava, Percutaneous Approach (ICD-10-PCS; 2022-01-08)
PROC: 02H633Z Insertion of Infusion Device into Right Atrium, Percutaneous Approach (ICD-10-PCS; 2022-01-08)
PROC: B5181ZA Fluoroscopy of Superior Vena Cava using Low Osmolar Contrast, Guidance (ICD-10-PCS; 2022-01-08)
PROC: B548ZZA Ultrasonography of Superior Vena Cava, Guidance (ICD-10-PCS; 2022-01-08)
PROC: B5191ZZ Fluoroscopy of Inferior Vena Cava using Low Osmolar Contrast (ICD-10-PCS; 2022-01-08)
PROC: B51N1ZZ Fluoroscopy of Left Upper Extremity Veins using Low Osmolar Contrast (ICD-10-PCS; 2022-01-08)
PROC: 5A1D70Z Performance of Urinary Filtration, Intermittent, Less than 6 Hours Per Day (ICD-10-PCS; 2022-01-08)
DX: T82.42XA Displacement of vascular dialysis catheter, initial encounter (principal); N18.6 End stage renal disease; I12.0 Hypertensive chronic kidney disease with stage 5 chronic kidney disease or end stage renal disease; E44.1 Mild protein-calorie malnutrition; E87.2 Acidosis; Z20.822 Contact with and (suspected) exposure to COVID-19; E87.5 Hyperkalemia; E83.51 Hypocalcemia; Z68.28 Body mass index [BMI] 28.0-28.9, adult; H54.8 Legal blindness, as defined in USA; Y83.8 Other surgical procedures as the cause of abnormal reaction of the patient, or of later complication, without mention of misadventure at the time of the procedure; Y92.89 Other specified places as the place of occurrence of the external cause; Z88.8 Allergy status to other drugs, medicaments and biological substances; Z82.49 Family history of ischemic heart disease and other diseases of the circulatory system; Z99.2 Dependence on renal dialysis
CPT/HCPCS: 36415; 36558; 37248; 71045; 77001; 80048; 80053; 80074; 81001; 84702; 85007; 85025; 85027; 85610; 85730; 93005; 93970; G0378; J3490; Q9967; C1725; C1750; C1751; C1769; C1894; J1644; J1815; J2250; J2405; J3010; J7050; U0003